=== PATIENT | female | born 1950 | race Caucasian/White ===

== ENCOUNTER → 2018-08-03 | Day surgery (SDC) | payer OTHER ==
[~2018-08-03] MED LIST: BALANCED SALT IRRIG PLAIN 500 ML BTL IRR ONE; BUPIVACAINE 0.25% PF 10 ML VIAL ONE; CYCLOPENTOLATE 1% OPTH 2 ML ONE; CYCLOPENTOLATE 1% OPTH 2 ML OPTH ONE; DUOVISC 1 KIT OPTH ONE; EPINEPHRINE/PF 1 MG/ML AMP ONE; FENTANYL CITR 100 MCG/2 ML ONE; LIDOCAINE 1% MPF 2 ML AMPULE ONE; LIDOCAINE 2% MPF 5 ML VIAL ONE; LIDOCAINE HCL/PF 3.5% OPTH GEL ONE; MIDAZOLAM HCL 2 MG/2 ML INJ ONE; MOXIFLOXACIN HCL 10 DROPS/ML **OR USE OPTH ONE; NA CHLORIDE 0.9% 500 ML ONE; NS 0.9% VIAL 10 ML ONE; PHENYLEPHRINE 10% OPTH 5ML ONE; PHENYLEPHRINE 10% OPTH 5ML OPTH ONE; TETRACAINE HCL 0.5% 2ML OPTH ONE
--- OUTSIDE RECORDS SUMMARY | 2018-08-03 07:26 | XMS REPORT | Clinical Summary ---
:1950 Author Organization [facility] Address [address] [place] [address] Care Team Providers Name Role Phone Asked, No Pcp Primary Care Provider Unavailable Allergies Active Allergy Reactions Severity Noted Date Comments Cephalexin 04/02/2016 Current Medications Prescription Sig. Disp. Refills Start Date End Date Status fluticasone-salmete Inhale 1 puff 2 Active rol (ADVAIR) 250-50 (two) times a mcg/dose DISKUS day. montelukast Take 10 mg by Active (SINGULAIR) 10 mg mouth nightly. tablet tiotropium Place 1 capsule Active (SPIRIVA) 18 mcg into inhaler and per inhalation inhale once capsule daily. ipratropium-albuter Inhale 2 puffs Active ol (COMBIVENT) every 6 (six) 18-103 hours as needed mcg/actuation for wheezing. inhaler PARoxetine (PAXIL) Take 20 mg by Active 20 MG tablet mouth every morning. albuterol Take 2.5 mg by Active (PROVENTIL) 2.5 mg nebulization /3 mL (0.083 %) every 6 (six) nebulizer solution hours as needed for wheezing. amitriptyline Take 150 mg by Active (ELAVIL) 150 MG mouth nightly. tablet levocetirizine TAKE ONE TABLET 30 tablet 3 03/30/2018 Active (XYZAL) 5 MG tablet BY MOUTH IN THE EVENING FOR 30 DAYS famotidine (PEPCID) TAKE ONE TABLET 90 tablet 4 01/13/2017 02/07/20 Discontinued 40 MG tablet BY MOUTH ONCE 18 DAILY pantoprazole TAKE ONE TABLET 90 tablet 3 02/17/2017 12/23/19 Discontinued (PROTONIX) 40 MG EC BY MOUTH ONCE 18 tablet DAILY levoFLOXacin Take 1 tablet 7 tablet 0 07/31/2017 08/07/20 (LEVAQUIN) 500 MG (500 mg total) by 17 tablet mouth daily for 7 days. famotidine (PEPCID) Take 40 mg by 04/29/20 Discontinued 40 MG tablet mouth daily. 18 levocetirizine Take 5 mg by 10/29/19 Discontinued (XYZAL) 5 MG tablet mouth every 18 evening. levocetirizine Take 1 tablet (5 30 tablet 3 10/29/2017 03/30/20 Discontinued (XYZAL) 5 MG tablet mg total) by 18 mouth every evening for 30 days. levoFLOXacin Take 1 tablet 7 tablet 0 10/29/2017 11/05/19 (LEVAQUIN) 500 MG (500 mg total) by 18 tablet mouth daily for 7 days. predniSONE 4 tabs daily X 3 32 tablet 0 10/29/2017 11/13/19 (DELTASONE) 10 mg days, 3 tabs 18 tablet daily X 3 days, 2 tabs daily X 3 days, 1 tab daily X 3 days, then 1/2 tab daily X 3 days. pantoprazole TAKE ONE TABLET 90 tablet 3 12/22/2017 01/22/20 (PROTONIX) 40 MG EC BY MOUTH ONCE 18 tablet DAILY predniSONE 4 tabs daily X 3 32 tablet 0 01/27/2018 02/12/20 (DELTASONE) 10 mg days, 3 tabs 18 tablet daily X 3 days, 2 tabs daily X 3 days, 1 tab daily X 3 days, then 1/2 tab daily X 3 days. famotidine (PEPCID) TAKE ONE TABLET 90 tablet 4 02/06/2018 03/08/20 40 MG tablet BY MOUTH ONCE 18 DAILY famotidine (PEPCID) Take 1 tablet (40 30 tablet 2 04/29/2018 05/29/20 40 MG tablet mg total) by 18 mouth daily for 30 days. Active Problems Problem Noted Date Allergic sinusitis 10/29/2017 COPD, severe- stable 07/31/2017 COPD with exacerbation (HCC) 02/26/2017 Confusion 02/26/2017 Pneumonia due to infectious organism 11/15/2016 Gastroesophageal reflux disease without esophagitis- stable 09/18/2016 Anxiety 09/18/2016 Chronic obstructive pulmonary disease (HCC) 05/30/2016 COPD (chronic obstructive pulmonary disease) (HCC) Lung nodule Encounters Date Type Specialty Care Team Description 05/05/2018 Orders Only Pulmonology Margarita Yao MA Chronic obstructive pulmonary disease, unspecified COPD type 04/29/2018 Clinical Support Pulmonology Kj Vergara, Chronic obstructive MD pulmonary disease, Vamsi Oleary unspecified COPD type 04/29/2018 Office Visit Pulmonology Kj Vergara, Chronic obstructive pulmonary disease, unspecified COPD type (Primary Dx); Allergic sinusitis; Gastroesophageal reflux disease without esophagitis 03/30/2018 Refill Pulmonology Kj Vergara, 02/06/2018 Refill Pulmonology Kj Vergara, 01/27/2018 Office Visit Pulmonology Kj Veragra, COPD, severe- stable (Primary Dx); Gastroesophageal reflux disease without esophagitis- stable; Allergic sinusitis 12/22/2017 Refill Pulmonology Kj Vergara, 10/29/2017 Office Visit Pulmonology Kj Vergara, COPD, severe- stable (Primary Dx); Allergic sinusitis after 08/02/2017 Immunizations Name Dates Previously Given Next Due FLUZONE HIGH-DOSE PF 07/31/2017, 05/30/2016 Influenza Trivalent 07/05/2015 Pneumococcal Conjugate 13-Valent 11/14/2015 Pneumococcal Polysaccharide 04/28/2013 Social History Tobacco Use Types Packs/Day Years Used Date Former Smoker Quit: 2006 Smokeless Tobacco: Former User Comments: 2008 stopped smoking Alcohol Use Drinks/Week oz/Week Comments No Sex Assigned at Date Recorded Not on file Last Filed Vital Signs Vital Sign Reading Time Taken Blood Pressure 122/70 04/29/2018 12:31 PM CDT Pulse 102 04/29/2018 12:31 PM CDT Temperature 36.6 C (97.8 F) 04/29/2018 12:31 PM CDT Respiratory Rate 14 04/29/2018 12:31 PM CDT Oxygen Saturation 90% 04/29/2018 12:31 PM CDT Inhaled Oxygen Concentration - - Weight 73.6 kg (162 lb 3.2 oz) 04/29/2018 12:31 PM CDT Height 167.6 cm (5' 6") 04/29/2018 12:31 PM CDT Body Mass Index 26.18 04/29/2018 12:31 PM CDT Plan of Treatment Date Type Specialty Care Team Description 08/10/2018 Office Visit Pulmonology Kj Vergara MD [address] [facility] [place] [address] Health Maintenance Due Date Last Done Comments BREAST CANCER SCREENING 1998 COLON CANCER SCREENING 1998 SHINGRIX VACCINE (#1) 1998 ZOSTER VACCINE 2008 INFLUENZA VACCINE 05/06/2018 07/31/2017, 05/30/2016, 07/05/2015 PNEUMOCOCCAL POLYSACCHARIDE VACCINE Completed 04/28/2013 AGE 65 AND OVER PNEUMOCOCCAL-13 Completed 11/14/2015 Results Not on fileafter 08/02/2017 Insurance Payer Benefit Plan / Group Subscriber ID Type Phone Address HUMANA MEDICARE HUMANA MEDICARE PPO/PFFS/ERS [facility] xxxxxxxxx PPO [phone] [place], [place] [id number]
--- NOTE | 2018-08-03 09:58 | P.BOP ---
Preoperative diagnosis: Nuclear sclerotic cataract OD Postoperative diagnosis: Same Primary procedure: Phacoemulsification with IOL OD Estimated blood loss: None Anesthesia: Local (Topical with anesthesia for cataract surgery) Complications: None Implants: [id number] +21.5 Transferred to: Other (Day surgery) Condition: Good
[2018-08-03 10:04] VITALS: BP 123/60; TEMP 97.3; O2SAT 93
--- NOTE | 2018-08-03 20:43 | OP ---
Date of Procedure: 08/03/2018 Surgeon: Dawn Kwan MD Anesthesiologist: Garrick León CRNA and Raz Boland M.D. Preoperative Diagnosis: Nuclear sclerotic cataract, right eye. Operation Performed: Phacoemulsification with intraocular lens implant, right eye. Anesthesia: Per cataract surgery. Complications: None. Description Of Procedure: In the operating room the patient was prepped and draped in the usual sterile fashion for ophthalmic surgery. A lid speculum was placed in the right eye. Two paracentesis sites were made superiorly and inferiorly in the limbal cornea. Viscoat was placed in the anterior chamber and a crescent blade was used to make a corneal groove and tunnel, and a keratome was used to enter the anterior chamber. Provisc was placed in the anterior chamber and a 360 degree capsulotomy was performed with a cystitome. The lens was hydrodissected with BSS and rotated freely. The lens was removed with a stop and chop technique. A 7.27 phaco CDE was used to remove the lens. Residual cortex was removed with the irrigation and aspiration. Provisc was placed in the capsular bag. A ZCB00 +21.5 lens was placed in the capsular bag without complications. Irrigation and aspiration was used to remove residual viscoelastic. The paracentesis sites were hydrated with BSS. The wound and paracentesis sites were inspected and found to be watertight. Vigamox 0.07 cc was placed intracamerally at the end of the procedure. The eye was irrigated with balanced salt solution. The eye was patched with a soft cotton patch and Tyler metal shield. The patient was returned to day surgery in good condition. Comments: Akten was placed in the eye in Day Surgery and irrigated out of the eye with BSS in the OR. Preservative-free 1% lidocaine was placed in the anterior chamber prior to Viscoat. During I and A, the pupil became floppy and 1:5000 epinephrine was placed in the anterior chamber. Discharge Instructions: Ms. Waldrop was discharged to home in good condition and is to follow up with Dr. Kwan in the morning. DAQUAN/BRIAN Voice ID: [id number] Report ID: [id number] [facility] CENTERMargot
== END | disposition home or self-care (01) ==
LOC: OR 07:24
PROVIDERS: ATTEND Ophthalmology Retina Specialist
PROC: 08RJ3JZ Replacement of Right Lens with Synthetic Substitute, Percutaneous Approach (ICD-10-PCS; principal; 2018-08-03 09:00)
DX: H25.11 Age-related nuclear cataract, right eye (principal); H04.123 Dry eye syndrome of bilateral lacrimal glands; H35.3130 Nonexudative age-related macular degeneration, bilateral, stage unspecified; J44.9 Chronic obstructive pulmonary disease, unspecified; K21.9 Gastro-esophageal reflux disease without esophagitis; Z87.891 Personal history of nicotine dependence; Z88.1 Allergy status to other antibiotic agents; Z88.6 Allergy status to analgesic agent
CPT/HCPCS: 66984; J0171 ×2; J2001; J2250; J3010

== ENCOUNTER 2018-08-10 08:09 | Observation (INO) | payer OTHER ==
--- OUTSIDE RECORDS SUMMARY | 2018-08-10 08:11 | XMS REPORT | Clinical Summary ---
:1950 Author Organization [facility] Address [address] [place] [address] Care Team Providers Name Role Phone Asked, [...] EC BY MOUTH ONCE 18 tablet DAILY famotidine (PEPCID) Take 40 mg by 04/29/20 [...] Kj Vergara, 01/27/2018 Office Visit Pulmonology Kj Vergara, COPD, severe- stable (Primary Dx); Gastroesophageal reflux disease without esophagitis- stable; Allergic sinusitis 12/22/2017 Refill Pulmonology Kj Vergara, 10/29/2017 Office Visit Pulmonology Kj Vergara, COPD, severe- stable (Primary Dx); Allergic sinusitis after 08/09/2017 Immunizations Name Dates Previously Given Next Due [...] Team Description 08/10/2018 Office Visit Pulmonology Kj Vergara, [address] [address] [phone] Health Maintenance Due Date Last Done Comments BREAST CANCER SCREENING 1998 COLON CANCER SCREENING 1998 SHINGRIX VACCINE (#1) 1998 ZOSTER VACCINE 2008 INFLUENZA VACCINE 05/06/2018 07/31/2017, 05/30/2016, 07/05/2015 PNEUMOCOCCAL POLYSACCHARIDE VACCINE Completed 04/28/2013 AGE 65 AND OVER PNEUMOCOCCAL-13 Completed 11/14/2015 Results Not on fileafter 08/09/2017 Insurance Payer Benefit Plan / Group Subscriber ID Type Phone Address HUMANA MEDICARE HUMANA MEDICARE PPO/PFFS/ERS [facility] xxxxxxxxx PPO Home: [id number] [phone] [place] [phone]
[2018-08-10] MEDS ORDERED: NA CHLORIDE 0.9% 500 ML ONE (08:37)
[2018-08-10] MEDS ORDERED: MECLIZINE HCL 12.5 MG TAB ONE (08:37)
--- NOTE | 2018-08-10 08:49 | RAD REPORT ---
EXAM DESCRIPTION: CT - Ct Stroke Brain Wo Cont - 08/10/2018 8:40 am CLINICAL HISTORY: Dizziness COMPARISON: None. TECHNIQUE: Computed axial tomography of the head was obtained. IV contrast was not requested. All CT scans are performed using dose optimization technique as appropriate and may include automated exposure control or mA/KV adjustment according to patient size. FINDINGS: An intracranial bleed is not seen . The ventricles are normal in caliber. No extra-axial fluid collection is noted. Chronic opacification of the left maxillary sinus is seen. IMPRESSION: No acute intracranial abnormality is seen. If patient's symptoms persist MRI of the bra in would be recommended. Exam discussed with Dr. Hernandez Emergency Room 8:43 a.m. August 10, 2018
[2018-08-10 09:01] LABS: Absolute Lymphocytes (CBC) 1.3 K/uL (0.7-4.9); Absolute Monocytes 0.6 K/uL (0.1-1.3); Absolute Neutrophil 4.7 K/uL (1.8-8.0); Basophils % 0.4 % (0-1.3); Eosinophils % 3.7 % (0-4.4); Hematocrit 40.2 % (36.0-45.0); Lymphocytes % 19.1 % (15.3-44.8); MCH 31.7 pg (27.0-35.0); MCV 95.2 fL (80-100); MPV 7.8 fL (7.6-11.3); Monocytes % 9.1 % (3.3-12.3); RBC Red Blood Cell Count 4.22 M/uL (3.86-4.86)
[2018-08-10 09:06] LABS: Protime INR 0.93
[2018-08-10 09:22] LABS: Potassium 3.9 mmol/L (3.5-5.1)
--- NOTE | 2018-08-10 09:52 | RAD REPORT ---
EXAM DESCRIPTION: - STROKE CXR 1 VIEW - 08/10/2018 9:15 am CLINICAL HISTORY: Weakness/dizziness/numbness/code stroke COMPARISON: November 2016 FINDINGS: The lungs are hyperaerated. Lungs appear clear of acute infiltrate. Heart is normal size
--- NOTE | 2018-08-10 11:19 | EDPHYS ---
Physician Documentation [facility] Name: Yany Waldrop Age: 68 yrs Sex: Female : 1950 Arrival Date: 08/10/2018 Time: 08:11 Bed 5 Private MD: ED Physician Marcelo Hernandez HPI: 08/10 08:47 This 68 yrs old Female presents to ER via Wheelchair with complaints of rn Dizziness. 08:47 The patient presents with feeling off balance, sense of spinning. Onset: The rn symptoms/episode began/occurred 2 week(s) ago. Modifying factors: The symptoms are alleviated by nothing, the symptoms are aggravated by movement of head, standing up, changing position. Severity of symptoms: At their worst the symptoms were moderate in the emergency department the symptoms have improved. The patient has experienced similar episodes in the past. Woke up today and fell to ground because feeling lightheaded and dizzy, report dizzy episodes, intermittent, happening for last 2 weeks, noticed right arm weakness over last 2 days, and when woke up today noticed right leg weakness. . Historical: - Allergies: 08:18 Keflex; iw - Immunization history:: Adult Immunizations up to date. - Ebola Screening: : Patient negative for fever greater than or equal to 101.5 degrees Fahrenheit, and additional compatible Ebola Virus Disease symptoms Patient denies exposure to infectious person Patient denies travel to an Ebola-affected area in the 21 days before illness onset No symptoms or risks identified at this time. - Social history:: Smoking status: Patient/guardian denies using tobacco, Patient/guardian denies using alcohol. - Family history:: not pertinent. - Hospitalizations: : No recent hospitalization is reported. ROS: 08:47 Constitutional: Negative for fever, chills, and weight loss, Eyes: Negative for injury, rn pain, redness, and discharge, Neck: Negative for injury, pain, and swelling, Cardiovascular: Negative for chest pain, palpitations, and edema, Respiratory: Negative for pleuritic chest pain Abdomen/GI: Negative for abdominal pain, nausea, vomiting, diarrhea, and constipation, MS/Extremity: Negative for injury and deformity, Skin: Negative for injury, rash, and discoloration, Neuro: Negative for headache, numbness, tingling, and seizure. Exam: 08:47 Constitutional: This is a well developed, well nourished patient who is awake, alert, rn and in no acute distress. Head/Face: Normocephalic, atraumatic. Eyes: Pupils equal round and reactive to light, extra-ocular motions intact. Lids and lashes normal. Conjunctiva and sclera are non-icteric and not injected. Cornea within normal limits. Periorbital areas with no swelling, redness, or edema. Neck: Trachea midline, no thyromegaly or masses palpated, and no cervical lymphadenopathy. Supple, full range of motion without nuchal rigidity, or vertebral point tenderness. No Meningismus. Cardiovascular: Regular rate and rhythm with a normal S1 and S2. No gallops, murmurs, or rubs. Normal PMI, no JVD. No pulse deficits. Respiratory: faint exp wheezing bilaterally, speaking full sentences Abdomen/GI: soft, non-tender MS/ Extremity: Pulses equal, no cyanosis. Neurovascular intact. Full, normal range of motion. Equal circumference. Neuro: Awake and alert, GCS 15, oriented to person, place, time, and situation. Cranial nerves II-XII grossly intact. Motor strength 5/5 in all extremities. Sensory grossly intact. NOrmal finger to nose. Vital Signs: 08:12 BP 157 / 89; Pulse 100; Resp 18; Temp 98.6(TE); Pulse Ox 94% on R/A; Weight 70.76 kg; hj Height 5 ft. 4 in. (162.56 cm); Pain 0/10; 09:08 BP 131 / 72; Pulse 90; Resp 18; Pulse Ox 96% on R/A; hj 09:43 BP 137 / 78; Pulse 89; Resp 18; Pulse Ox 94% on R/A; hj 10:11 BP 113 / 79; Pulse 88; Resp 18; Pulse Ox 95% on R/A; hj 10:53 BP 139 / 80; Pulse 87; Resp 18; Pulse Ox 96% on R/A; hj 11:37 BP 146 / 86; Pulse 88; Resp 18; Pulse Ox 95% on 2 lpm NC; hj 12:23 BP 139 / 78; Pulse 96; Resp 18; Pulse Ox 99% on 2 lpm NC; hj 08:12 Body Mass Index 26.78 (70.76 kg, 162.56 cm) NIH Stroke Scale Scores: 08:50 NIHSS Score: 0 hj MDM: 08:23 Patient medically screened. rn 08:40 ED course: NIH 0. Has subjective weakness RUE/RLE but no drift and elevates for 10s rn (arm), 5s (leg). 08:45 ED course: Pt with symptoms more consistent with vertigo syndrome, reports dizziness rn and unsteady, worse over last 2 weeks and when gets out of bed. No TPA indicated as NIH 0 and woke up with symptoms. Explained importance of timing/onset to patient and in terms of TPA/ no TPA, and after long discussion, patient states weakness present upon awakening., which puts last known normal last night and outside of TPA window.. 09:01 ED course: CT head no acute findings per Lopez Higginbotham.. rn 11:14 Differential diagnosis: cardiac arrhythmia, CVA, generalized weakness, hypovolemia, rn idiopathic dizziness, near-syncope, TIA, vertigo. Data reviewed: vital signs, nurses notes, lab test result(s), EKG, radiologic studies, CT scan, plain films, and as a result, I will admit patient. Counseling: I had a detailed discussion with the patient and/or guardian regarding: the historical points, exam findings, and any diagnostic results supporting the discharge/admit diagnosis, lab results, radiology results, the need for further work-up and treatment in the hospital. Response to treatment: the patient's symptoms have mildly improved after treatment. Admission orders: after a detailed discussion of the patient's condition and case, the admit orders are written by me. ED course: Will admit to Dr. Finney for MRI and further eval given vertigo like symptoms but has additional right sided weakness. . 08/10 08:23 Order name: Troponin (emerg Dept Use Only) rn 08/10 08:23 Order name: Basic Metabolic Panel rn 08/10 08:23 Order name: CBC with Diff rn 08/10 08:23 Order name: Protime (+inr) rn 08/10 08:23 Order name: Ptt, Activated rn 08/10 10:37 Order name: Troponin (Emerg Dept Use Only); Complete Time: 11:18 EDMS 08/10 08:23 Order name: CT Stroke Brain w/o Contrast rn 08/10 08:23 Order name: Stroke CXR 1 View rn 08/10 10:37 Order name: Protime (+INR); Complete Time: 11:18 EDMS 08/10 10:37 Order name: CBC with Automated Diff; Complete Time: 11:18 EDMS 08/10 10:37 Order name: PTT, Activated Partial Thromb; Complete Time: 11:18 EDMS 08/10 10:37 Order name: Basic Metabolic Panel; Complete Time: 11:18 EDMS 08/10 10:37 Order name: Glucose, Ancillary Testing; Complete Time: 11:18 EDMS 08/10 11:31 Order name: Urine Dipstick--Ancillary (enter results) bd 08/10 08:23 Order name: EKG; Complete Time: 10:35 rn 08/10 08:23 Order name: Accucheck; Complete Time: 08:57 rn 08/10 08:23 Order name: Cardiac monitoring; Complete Time: 08:25 rn 08/10 08:23 Order name: EKG - Nurse/Tech; Complete Time: 09:34 rn 08/10 08:23 Order name: IV Saline Lock; Complete Time: 08:57 rn 08/10 08:23 Order name: Labs collected and sent; Complete Time: 08:57 rn 08/10 08:23 Order name: NPO; Complete Time: 08:25 rn 08/10 08:23 Order name: O2 Per Protocol; Complete Time: 08:25 rn 08/10 08:23 Order name: O2 Sat Monitoring; Complete Time: 08:25 rn 08/10 08:23 Order name: Stroke Swallow Screen; Complete Time: 08:57 rn 08/10 10:46 Order name: CT; Complete Time: 11:18 EDMS 08/10 10:46 Order name: RAD; Complete Time: 11:18 EDMS Administered Medications: 08:50 Drug: Meclizine 50 mg Route: PO; hj 09:11 Follow up: Response: No adverse reaction hj 08:50 Drug: NS 0.9% 500 ml Route: IV; Rate: bolus; Site: left antecubital; hj 10:00 Follow up: IV Status: Completed infusion Point of Care Testing: Blood Glucose: 08:50 Blood Glucose: 91 mg/dL; Ranges: Critical Glucose Levels:Adult <50 mg/dl or >400 mg/dl <40 mg/dl or >180 mg/dl Disposition: 08/10/18 11:18 Hospitalization ordered by Finney, Poyani for Observation. Preliminary diagnosis are Dizziness and giddiness, Weakness. - Bed requested for Telemetry/MedSurg (observation). - Status is Observation. hj - Condition is Stable. - Problem is an ongoing problem. - Symptoms have improved. UTI on Admission? No NIH Stroke Scale - NIH Stroke Score Date: 08/10/2018 Time: 08:50 Total Score = 0 1a. Level of Consciousness (LOC) - 0(Alert) 1b. Level of Consciousness (LOC) (Year \T\ Age) - 0(Both) 1c. LOC Commands (Open \T\ Closes Eyes/Women'S Garment Fitter) - 0(Both) 2. Best Gaze (Lateral Gaze Paresis) - 0(Normal) 3. Visual Field Loss - 0(No visual loss) 4. Facial Palsy - 0(Normal) 5a. Left Arm: Motor (10-second hold) - 0(No drift) 5b. Right Arm: Motor (10-second hold) - 0(No drift) 6a. Left Leg: Motor (5-second hold - always test supine) - 0(No drift) 6b. Right Leg: Motor (5-second hold - always test supine) - 0(No drift) 7. Limb Ataxia (finger/nose \T\ heel/dunlap - test with eyes open) - 0(Absent) 8. Sensory Loss (pinprick arms/legs/face) - 0(Normal) 9. Best Language: Aphasia (description/naming/reading) - 0(No aphasia) 10. Dysarthria (speech clarity - read or repeat words) - 0(Normal) 11. Extinction and Inattention (visual/tactile/auditory/spatial/personal) - 0(No abnormality) Initials: Signatures: Dispatcher [employer] EDMS Linnette Grier Irene, RN RN iw Nieto, Roman, MD MD rn Joaquin, Henry, RN RN hj Corrections: (The following items were deleted from the chart) 08:46 08:45 ED course: Pt with symptoms more consistent with vertigo syndrome, rn reports dizziness and unsteady, worse over last 2 weeks and when gets out of bed. No TPA indicated as NIH 0 and woke up with symptoms. Explained importance of timing/onset to patient and in terms of TPA/ no TPA, and after long discussion, patient states weakness present upon awakening. . rn 12:48 11:18 Hospitalization Ordered by Katie Finney MD for Observation. Preliminary bd diagnosis is Dizziness and giddiness; Weakness. Bed requested for Telemetry/MedSurg (observation). Status is Observation. Condition is Stable. Problem is an ongoing problem. Symptoms have improved. UTI on Admission? No. rn 13:13 12:48 08/10/2018 11:18 Hospitalization Ordered by Katie Finney MD for hj Observation. Preliminary diagnosis is Dizziness and giddiness; Weakness. Bed requested for Telemetry/MedSurg (observation). Status is Observation. Condition is Stable. Problem is an ongoing problem. Symptoms have improved. UTI on Admission? No. bd
--- NOTE | 2018-08-10 11:19 | ER ---
Nurse's Notes [facility] Name: Yany Waldrop Age: 68 yrs Sex: Female : 1950 Arrival Date: 08/10/2018 Time: 08:11 Bed 5 Private MD: Diagnosis: Dizziness and giddiness;Weakness Presentation: 08/10 08:13 Presenting complaint: Patient states: c/o intermittent dizziness, light headedness for iw past week, this morning felt like right leg and right arm was feeling weak, this morning she fell to ground when she got out of bed. Transition of care: patient was not received from another setting of care. Risk Assessment: Do you want to hurt yourself or someone else? Patient reports no desire to harm self or others. Initial Sepsis Screen: Does the patient meet any 2 criteria? No. Patient's initial sepsis screen is negative. Does the patient have a suspected source of infection? No. Patient's initial sepsis screen is negative. Care prior to arrival: None. 08:13 Method Of Arrival: Wheelchair iw 08:13 Acuity: ALFONSO 2 iw 08:13 Onset of symptoms was August 10, 2018. hj 08:50 No acute neurological deficit is noted. The patients blood glucose was checked before hj arriving to the hospital and was found to be normal. Triage Assessment: 08:39 General: Appears in no apparent distress. uncomfortable, Behavior is calm, cooperative, hj appropriate for age. Pain: Denies pain. 08:50 The onset of the patients symptoms was August 10, 2018 at 07:30. hj Stroke Activation: Symptom onset > 6 hours Physician: Stroke Attending; Name: ; Notified At: ; Arrived At: Physician: Chief Stroke Resident; Name: ; Notified At: ; Arrived At: Physician: Stroke Resident; Name: ; Notified At: ; Arrived At: Physician: ED Attending; Name: ; Notified At: ; Arrived At: Physician: ED Resident; Name: ; Notified At: ; Arrived At: Historical: - Allergies: 08:18 Keflex; iw - Immunization history:: Adult Immunizations up to date. - Ebola Screening: : Patient negative for fever greater than or equal to 101.5 degrees Fahrenheit, and additional compatible Ebola Virus Disease symptoms Patient denies exposure to infectious person Patient denies travel to an Ebola-affected area in the 21 days before illness onset No symptoms or risks identified at this time. - Social history:: Smoking status: Patient/guardian denies using tobacco, Patient/guardian denies using alcohol. - Family history:: not pertinent. - Hospitalizations: : No recent hospitalization is reported. Screenin:13 Abuse screen: Denies threats or abuse. Denies injuries from another. Nutritional hj screening: No deficits noted. Tuberculosis screening: No symptoms or risk factors identified. Fall Risk None identified. Assessment: 08:13 Reassessment: pt was sent to CT immediately;. hj 08:35 T-PA (Activase) Screening: Contraindications: Patient reports onset of signs and iw symptoms of stroke greater than 6 hours ago: Yes. 08:44 Reassessment: Dr. Higginbotham reports Ct was negative. iw 08:50 The patient has not been NPO before screening. The patient is alert, and able to follow hj commands. The patient does not exhibit slurred or garbled speech. The patient is not exhibiting difficulty speaking. The patient does not exhibit difficulty understanding words. The patient is able to swallow own secretions with no drooling or need for suction. Patient tolerated one teaspoon of water. No drooling, immediate coughing, gurgling, or clearing of the throat was noted. The patient passed the bedside swallow screening. Oral medications may be given as ordered. Contact Physician for further diet orders. Provider notified of bedside swallow screening results: Chago Flores RN. Neuro: Level of Consciousness is awake, alert, obeys commands, Oriented to person, place, time, situation, Appropriate for age Fire Control Officer are Weakness in right arm(s) leg(s) Gait is steady, Speech is normal, Facial symmetry appears normal, Pupils are PERRLA, Intact Reports dizziness, weakness in right arm and right leg that started this AM;. 08:50 The patient tolerated 90mL of water. No drooling, immediate coughing, gurgling, or hj clearing of the throat was noted. 10:11 Reassessment: Patient and/or family updated on plan of care and expected duration. Pain hj level reassessed. Patient is alert, oriented x 3, equal unlabored respirations, skin warm/dry/pink. awaiting results and POC;. 11:36 Reassessment: assisted pt to bathroom; pt complained of SOB; states: "i used O2 at home hj at night time"; pt assisted back to room via wheelchair, hooked to O2 at 2L; O2 sat- 95%;. Vital Signs: 08:12 BP 157 / 89; Pulse 100; Resp 18; Temp 98.6(TE); Pulse Ox 94% on R/A; Weight 70.76 kg; hj Height 5 ft. 4 in. (162.56 cm); Pain 0/10; 09:08 BP 131 / 72; Pulse 90; Resp 18; Pulse Ox 96% on R/A; hj 09:43 BP 137 / 78; Pulse 89; Resp 18; Pulse Ox 94% on R/A; hj 10:11 BP 113 / 79; Pulse 88; Resp 18; Pulse Ox 95% on R/A; hj 10:53 BP 139 / 80; Pulse 87; Resp 18; Pulse Ox 96% on R/A; hj 11:37 BP 146 / 86; Pulse 88; Resp 18; Pulse Ox 95% on 2 lpm NC; hj 12:23 BP 139 / 78; Pulse 96; Resp 18; Pulse Ox 99% on 2 lpm NC; hj 08:12 Body Mass Index 26.78 (70.76 kg, 162.56 cm) hj NIH Stroke Scale Scores: 08:50 NIHSS Score: 0 hj ED Course: 08:11 Patient arrived in ED. hj 08:12 Chago Flores, RN is Primary Nurse. hj 08:13 Arm band placed on right wrist. hj 08:13 Patient has correct armband on for positive identification. Placed in gown. Bed in low hj position. Call light in reach. Side rails up X 1. Adult w/ patient. 08:14 Triage completed. iw 08:23 Marcelo Hernandez MD is Attending Physician. rn 08:[address] via stretcher. sj 08:34 CT completed. Patient tolerated procedure well. Patient moved back from CT. sj 08:50 Initial lab(s) drawn, by me, sent to lab. Inserted saline lock: 22 gauge in left hj antecubital area, using aseptic technique. Blood collected. 09:14 X-ray completed. Portable x-ray completed in exam room. Patient tolerated procedure ls3 well. 09:39 EKG done, by cert pharmacy tech. reviewed by Marcelo Hernandez MD. sm3 11:17 Katie Finney MD is Hospitalizing Provider. rn 11:25 Urine collected: clean catch specimen, clear. dh3 13:12 No provider procedures requiring assistance completed. Patient admitted, IV remains in hj place. intact. Administered Medications: 08:50 Drug: Meclizine 50 mg Route: PO; 09:11 Follow up: Response: No adverse reaction 08:50 Drug: NS 0.9% 500 ml Route: IV; Rate: bolus; Site: left antecubital; 10:00 Follow up: IV Status: Completed infusion Point of Care Testing: Blood Glucose: 08:50 Blood Glucose: 91 mg/dL; Ranges: Outcome: 11:18 Decision to Hospitalize by Provider. rn 13:12 Admitted to Med/surg accompanied by tech, family with patient, via wheelchair, room hj 232, with oxygen, with chart, Report called to LEIGHA Wilks 13:12 Condition: stable 13:12 Instructed on the need for admit, Demonstrated understanding of instructions. 13:13 Patient left the ED. NIH Stroke Scale - NIH Stroke Score Date: 08/10/2018 Time: 08:50 Total Score = 0 1a. Level of Consciousness (LOC) - 0(Alert) 1b. Level of Consciousness (LOC) (Year \\T\\ Age) - 0(Both) 1c. LOC Commands (Open \\T\\ Closes Eyes/Belt Knife Feeder) - 0(Both) 2. Best Gaze (Lateral Gaze Paresis) - 0(Normal) 3. Visual Field Loss - 0(No visual loss) 4. Facial Palsy - 0(Normal) 5a. Left Arm: Motor (10-second hold) - 0(No drift) 5b. Right Arm: Motor (10-second hold) - 0(No drift) 6a. Left Leg: Motor (5-second hold - always test supine) - 0(No drift) 6b. Right Leg: Motor (5-second hold - always test supine) - 0(No drift) 7. Limb Ataxia (finger/nose \\T\\ heel/dunlap - test with eyes open) - 0(Absent) 8. Sensory Loss (pinprick arms/legs/face) - 0(Normal) 9. Best Language: Aphasia (description/naming/reading) - 0(No aphasia) 10. Dysarthria (speech clarity - read or repeat words) - 0(Normal) 11. Extinction and Inattention (visual/tactile/auditory/spatial/personal) - 0(No abnormality) Initials: hj Signatures: Gisela Desai Irene, RN RN iw Marcelo Hernandez MD MD rn Joaquin, Henry, RN RN hj Herrera, Deanna 3 [place] 3 Levi Kearns ls3 Corrections: (The following items were deleted from the chart) 08:14 08:12 BP 157 / 89; Pulse 100bpm; Resp 18bpm; Pulse Ox 94% RA; 70.76 kg; Height hj 5 ft. 4 in.; BMI: 26.7; Pain 0/10; hj 09:06 08:50 Neuro: Level of Consciousness is awake, alert, obeys commands, Oriented hj to person, place, time, situation, Appropriate for age Fire Control Officer are Weakness in left in right arm(s) leg(s) Gait is steady, Speech is normal, Facial symmetry appears normal, Pupils are PERRLA, Intact Reports dizziness, weakness in left arm and right leg that started this AM;. 12:03 08:50 NIHSS Score: 2 [facility]
[2018-08-10 12:03] LABS: Urine Blood NEGATIVE (NEG); Urine Glucose NEGATIVE (NEG); Urine Protein NEGATIVE (NEG); Urine Specific Gravity 1.015 (1.005-1.030)
[2018-08-10] MEDS ORDERED: ACETAMINOPHEN 500 MG TAB PO PRN (13:27)
[2018-08-10] MEDS ORDERED: ONDANSETRON 4 MG/2 ML VIAL IV PRN (13:27)
[2018-08-10] MEDS ORDERED: ALBUTEROL 2.5 MG/3 ML NEB SOL NEB PRN (13:27)
[2018-08-10 13:35] VITALS: BMI 27.8
--- NOTE | 2018-08-10 15:20 | EKG ---
Test Date: 2018-08-10 Test Time: 10:27:17 Receiver Bulk System: OLIVIA MEASUREMENT RESULTS: Intervals: Rate: 87 TN: 186 QRSD: 80 QT: 354 QTc: 425 [place]: P: 91 TN: 186 QRS: 56 T: 56 INTERPRETIVE STATEMENTS: Normal sinus rhythm Normal ECG Compared to ECG 10/22/2016 20:44:44 Sinus tachycardia no longer present Atrial abnormality no longer present Electronically Signed On 08-10-18 15:19:28 BIOENGINEER by Mendez Dacosta
[2018-08-10 16:38] LABS: Urine Appearance CLEAR; Urine Bilirubin NEGATIVE (NEG); Urine Blood NEGATIVE (NEG); Urine Color YELLOW; Urine Glucose NEGATIVE (NEG); Urine Protein NEGATIVE (NEG); Urine Urobilinogen 0.2 mg/dL (0.2-1.0)
[2018-08-10 16:53] LABS: Urine Microscopic Reflex ORDER UMIC
[2018-08-10 16:56] LABS: Urine Bacteria <20 /HPF (<20); Urine RBC NONE SEEN /HPF (NONE SEEN)
[2018-08-10 16:57] LABS: Urine Culture Reflex Order REFLEXED
[2018-08-10] MEDS ORDERED: ENOXAPARIN 40 MG/0.4 ML SQ SCH (17:00)
[2018-08-10] MEDS ORDERED: MECLIZINE HCL 12.5 MG TAB PO PRN (17:26)
[2018-08-10 17:35] LABS: Magnesium 2.2 mg/dL (1.8-2.4); Phosphorus 3.5 mg/dL (2.5-4.9)
--- NOTE | 2018-08-10 17:48 | P.HP ---
Certification for Inpatient Patient admitted to: Observation With expected LOS: <2 Midnights Practitioner: I am a practitioner with admitting privileges, knowledge of patient current condition, hospital course, and medical plan of care. Services: Services provided to patient in accordance with Admission requirements found in Title 42 Section 412.3 of the Code of Federal Regulations Patient History Date of Service: 08/10/18 Reason for admission: Dizziness History of Present Illness: This is a 68-year-old female with history of COPD, home oxygen at night only and depression admitted for complaints of dizziness for the past few weeks. Per patient she has been feeling dizzy mostly when waking up in the morning for the past few weeks. She states that this morning the dizziness did not go away and had to hold on and she kind of went to the floor. She states she did not fall or hit her head or any part of her body. As she has been feeling off balance, states that she is spinning when she has these symptoms. She also states that this morning with these symptoms of dizziness, she also had right arm and right left weakness/chest with mild numbness and tingling. This has now resolved. Denies any headache, chest pain, shortness of breath, vision changes, speech changes. Of note, patient does have chronic sinusitis, some recent adenoid infection for which she has been on CiproFloxin 500 b.i.d. since 07/29/18. Allergies cephalexin monohydrate [From Keflex] Allergy (Intermediate, Verified 07/29/18 09 :34) hypotention hydrocodone [Hydrocodone] Adverse Reaction (Mild, Verified 04/30/12 12:32) insomnia, jittery Home Medications: Albuterol 1 puff IH PRN PRN 07/22/18 Fluticasone/Salmeterol [Advair 250-50 Diskus] 1 puff IH DAILY 07/22/18 Ipratropium/Albuterol Sulfate [Combivent Respimat 20-100 Mcg] 1 puff IH PRN PRN 07/22/18 Amitriptyline HCl 150 mg PO BEDTIME 08/10/18 Famotidine 40 mg PO BEDTIME 08/10/18 Levocetirizine Dihydrochloride [Xyzal] 5 mg PO DAILY 08/10/18 Montelukast [Singulair] 10 mg PO BEDTIME 08/10/18 PARoxetine HCl [Paxil] 20 mg PO DAILY 08/10/18 Tiotropium [Spiriva Handihaler] 18 mcg IH BEDTIME 08/10/18 - Past Medical/Surgical History Diabetic: No -: COPD -: Pneumonia 2015 -: Sinus Infection 2016 -: hysterectomy -: back surgery -: sinus surgery -: gallbladder surgery - Family History Mother -: Diabetes Father -: Lung disease - Social History Smoking Status: Former smoker Alcohol use: No CD- Drugs: No Caffeine use: No Place of Residence: Home Review of Systems As noted above Physical Examination - Vital Signs Temperature: 97.0 F Blood Pressure: 135/70 Pulse: 102 Respirations: 16 Pulse Ox (%): 94 - Physical Exam General: Alert, In no apparent distress, Oriented x3 HEENT: Atraumatic, PERRLA, Mucous membr. moist/pink, EOMI, Sclerae nonicteric Neck: Supple, 2+ carotid pulse no bruit, No LAD, Without JVD or thyroid abnormality Respiratory: Clear to auscultation bilaterally, Normal air movement Cardiovascular: Regular rate/rhythm, Normal S1 S2 Gastrointestinal: Normal bowel sounds, No tenderness Musculoskeletal: No tenderness Integumentary: No rashes Neurological: Normal gait, Normal speech, Normal strength at 5/5 x4 extr, Normal tone, Normal affect, Other (Nonfocal neurological exam) - Studies Laboratory Data (last 24 hrs) 08/10/18 08:50: Sodium 143, Potassium 3.9, BUN 17, Creatinine 1.00, Glucose 89 08/10/18 08:50: APTT 31.4 08/10/18 08:50: WBC 7.0, Hgb 13.4, Hct 40.2, Plt Count 241 08/10/18 08:50: PT 11.0, INR 0.93 08/10/18 08:23: PT Cancelled, INR Cancelled, APTT Cancelled 08/10/18 08:23: WBC Cancelled, Hgb Cancelled, Hct Cancelled, Plt Count Cancelled 08/10/18 08:23: Sodium Cancelled, Potassium Cancelled, BUN Cancelled, Creatinine Cancelled, Glucose Cancelled Assessment and Plan - Plan This is a 68-year-old female with: -Positional dizziness: This is likely secondary to BPPV. CT scan of the head negative in the ER. MRI ordered, pending. Meclizine as needed, as this is helping her symptoms. Continue to monitor with tele overnight -COPD: Stable at this point. Breathing treatments as needed. oxygen p.r.n. - Sinus infection: Patient is to complete a 14 day course of ciprofloxacin that she started on 07/29/2018. Will restart her ciprofloxacin 500 mg p.o. b.i.d. - UTI: Urine analysis with possible early urinary tract infection. Cultures pending. She is currently on oral ciprofloxacin, will continue. - Elevated blood pressure, without diagnosis of hypertension: Will continue to monitor, p.r.n. blood pressure medications. - History of depression: Stable. Restart home medications DVT prophylaxis: Lovenox GI prophylaxis: Home PPI Diet: Regular Disposition: Admit to acute, with telemetry. Monitor overnight, pending MRI. Likely discharge home in the morning. - Advance Directives Does patient have a Living Will: Yes Does patient have a Durable POA for Healthcare: Yes
[2018-08-10] MEDS ORDERED: ALBUTEROL SULFATE IH PRN (17:51)
[2018-08-10] MEDS ORDERED: IPRATROPIUM IH PRN (17:51)
[2018-08-10] MEDS ORDERED: LORazepam 2 MG/ML VIAL IV ONE (17:51)
[2018-08-10] MEDS ORDERED: POTASSIUM CL SA 10 MEQ TAB PO ONE (20:00)
--- NOTE | 2018-08-10 20:06 | RAD REPORT ---
EXAM DESCRIPTION: MRI - MRA Neck W/Wo Cont - 08/10/2018 7:39 pm CLINICAL HISTORY: Syncope, headache, weakness. COMPARISON: No comparisons FINDINGS: Contrast enhance 2D [id number] MR angiography of the neck vessels was performed. A left aortic arch is noted with normal great vessel configuration. Both common carotid artery and pablo th subclavian arteries have a normal size and appearance. Mild narrowing of the left carotid bulb is present. No significant right-sided carotid narrowing. Forward flow is seen in codominant vertebral a rteries. No significant carotid stenosis is seen. IMPRESSION: No significant carotid stenosis identified.
--- NOTE | 2018-08-10 20:06 | RAD REPORT ---
EXAM DESCRIPTION: MRI - MRA Head Wo Cont - 08/10/2018 7:39 pm CLINICAL HISTORY: Dizziness + right sided numbness/tingling/weakness CVA COMPARISON: Ct Stroke Brain Wo Cont dated 08/10/2018 FINDINGS: 3D noncontrast [id number] MR angiography of the [place] of [place] was performed. No aneurysm, flow-limiting stenosis or vascular malformation is seen. Forward flow seen in codominant vertebral arteries. origin of both posterior communicating artery is noted, normal variant. The visualized dural venous sinuses appear patent. IMPRESSION: No significant flow abnormality of the [place] of [place] is identified.
--- NOTE | 2018-08-10 20:06 | RAD REPORT ---
EXAM DESCRIPTION: MRI - Brain W/Wo Cont - 08/10/2018 7:39 pm CLINICAL HISTORY: . Syncope, headache COMPARISON: MRA Head Wo Cont dated 08/10/2018 TECHNIQUE: Multi-sequence, multiplanar MR imaging of the brain was performed with contrast. FINDINGS: No intracranial hemorrhage, hydrocephalus, extra-axial fluid collection or acute infarctio n.Small foci of T2/ FLAIR hyperintensity noted in the periventricular and deep white matter likely re lated to chronic microvascular ischemia. 9 mm rounded area of T2/FLAIR hyperintensity in the left pos terior frontal lobe is noted without correlate DWI abnormality. Subtle post-contrast enhancement is s een in this lesion. No edema or shift of midline structures. DWI is negative for acute CVA. The midline structures are normally formed. Mastoid air cells and paranasal sinuses are clear. IMPRESSION: Negative for acute CVA. 9 mm rounded nonspecific T2/FLAIR hyperintense lesion posterior left frontal lobe with subtle evidenc e of post-contrast enhancement.Differential considerations would include prior ischemic episode or de myelinating condition. Followup MR brain with contrast would be advised in 2-3 months for surveillanc e purposes.
[2018-08-10] MEDS: CIPROFLOXACIN HCL 500 MG TAB PO SCH (20:27)
[2018-08-10] MEDS ORDERED: FAMOTIDINE 20 MG TAB PO SCH (21:00)
[2018-08-10] MEDS ORDERED: AMITRIPTYLINE HCL 150 MG PO SCH (21:00)
[2018-08-10] MEDS ORDERED: TIOTROPIUM IH SCH (21:00)
[2018-08-10] MEDS ORDERED: MONTELUKAST 10 MG TAB PO SCH (21:00)
[2018-08-11 01:47] VITALS: O2SAT 97
[2018-08-11 04:37] VITALS: TEMP 97.9
[2018-08-11 05:44] LABS: Absolute Lymphocytes (CBC) 1.6 K/uL (0.7-4.9); Absolute Monocytes 0.6 K/uL (0.1-1.3); Absolute Neutrophil 3.1 K/uL (1.8-8.0); Basophils % 0.7 % (0-1.3); Eosinophils % 6.1 % (0-4.4); Hematocrit 37.2 % (36.0-45.0); Lymphocytes % 27.6 % (15.3-44.8); MCH 32.5 pg (27.0-35.0); MCV 94.6 fL (80-100); MPV 7.6 fL (7.6-11.3); Monocytes % 10.3 % (3.3-12.3); RBC Red Blood Cell Count 3.93 M/uL (3.86-4.86)
[2018-08-11 06:02] LABS: Albumin 2.9 g/dL (3.4-5.0); Bilirubin Total 0.3 mg/dL (0.2-1.0); Potassium 4.3 mmol/L (3.5-5.1); Protein, Total 6.5 g/dL (6.4-8.2)
[2018-08-11 08:46] VITALS: BP 122/80
[2018-08-11] MEDS ORDERED: CETIRIZINE HCL 5 MG TABLET PO SCH (09:00)
[2018-08-11] MEDS ORDERED: PARoxetine HCl 10 MG TAB PO SCH (09:00)
[2018-08-11] MEDS ORDERED: FLUTICASONE IH SCH (09:00)
[2018-08-11] MEDS ORDERED: CIPROFLOXACIN 500 MG TABLET PO SCH (09:00)
[2018-08-11] MEDS: CIPROFLOXACIN HCL 500 MG TAB PO SCH (09:00)
[2018-08-11] MEDS ORDERED: SALMETEROL IH SCH (09:00)
[2018-08-11] MEDS ORDERED: [UNRECOGNIZED DRUG - OTHER] IH SCH (09:00)
--- NOTE | 2018-08-11 12:36 | P.SSS ---
Patient History Date of Service: 08/11/18 Primary Care Provider: Dr. barrios Reason for admission: Dizziness History of Present Illness: This is a 68-year-old female with history of COPD, home oxygen at night only and depression admitted for complaints of dizziness for the past few weeks. Per patient she has been feeling dizzy mostly when waking up in the morning for the past few weeks. She states that this morning the dizziness did not go away and had to hold on and she kind of went to the floor. She states she did not fall or hit her head or any part of her body. As she has been feeling off balance, states that she is spinning when she has these symptoms. She also states that this morning with these symptoms of dizziness, she also had right arm and right left weakness/chest with mild numbness and tingling. This has now resolved. Denies any headache, chest pain, shortness of breath, vision changes, speech changes. Of note, patient does have chronic sinusitis, some recent adenoid infection for which she has been on CiproFloxin 500 b.i.d. since 07/29/18. Allergies cephalexin monohydrate [From Keflex] Allergy (Intermediate, Verified 07/29/18 09 :34) hypotention hydrocodone [Hydrocodone] Adverse Reaction (Mild, Verified 04/30/12 12:32) insomnia, jittery Home Medications: Albuterol 1 puff IH PRN PRN 07/22/18 Fluticasone/Salmeterol [Advair 250-50 Diskus] 1 puff IH DAILY 07/22/18 Ipratropium/Albuterol Sulfate [Combivent Respimat 20-100 Mcg] 1 puff IH PRN PRN 07/22/18 Amitriptyline HCl 150 mg PO BEDTIME 08/10/18 Ciprofloxacin HCl [Cipro 500 MG Tablet] 1 tab PO Q12H 08/10/18 Famotidine 40 mg PO BEDTIME 08/10/18 Levocetirizine Dihydrochloride [Xyzal] 5 mg PO DAILY 08/10/18 Montelukast [Singulair*] 10 mg PO BEDTIME 08/10/18 PARoxetine HCl [Paxil*] 20 mg PO DAILY 08/10/18 Tiotropium [Spiriva Handihaler*] 18 mcg IH BEDTIME 08/10/18 Meclizine HCl [Antivert*] 25 mg PO Q6H PRN #30 tab 08/11/18 Pantoprazole [Protonix Tab*] 40 mg PO DAILY 08/11/18 - Past Medical/Surgical History Diabetic: No -: COPD -: Pneumonia 2015 -: Sinus Infection 2016 -: hysterectomy -: back surgery -: sinus surgery -: gallbladder surgery - Family History Mother -: Diabetes Father -: Lung disease - Social History Smoking Status: Former smoker Alcohol use: No CD- Drugs: No Caffeine use: No Place of Residence: Home Review of Systems As noted above Physical Examination - Vital Signs Temperature: 97.9 F Blood Pressure: 122/80 Pulse: 104 Respirations: 16 Pulse Ox (%): 98 - Physical Exam General: Alert, In no apparent distress HEENT: Atraumatic, PERRLA, Mucous membr. moist/pink, EOMI, Sclerae nonicteric Neck: Supple, 2+ carotid pulse no bruit, No LAD, Without JVD or thyroid abnormality Respiratory: Clear to auscultation bilaterally, Normal air movement Cardiovascular: Regular rate/rhythm, Normal S1 S2 Gastrointestinal: Normal bowel sounds, No tenderness Musculoskeletal: No tenderness Integumentary: No rashes Neurological: Normal gait, Normal speech, Normal strength at 5/5 x4 extr, Normal tone, Normal affect Lymphatics: No axilla or inguinal lymphadenopathy Treatment Summary: Patient was admitted for observation for dizziness. Neurological workup for stroke including MRI/MRA of brain and neck were negative. The a 9 mm hyperdense region noted on MRI, seems stable. We recommended a 3-6 months followup for repeat MRI to note for any changes in the lesion. At the time of discharge, patient was asymptomatic. She stated that this morning when she woke up and got up, she did not experience any dizziness. She was discharged in stable condition. She was instructed to follow up with primary care physician and manager surgical. - Disposition Disposition: ROUTINE DISCHARGE Condition: GOOD Patient Discharge Instructions: Please follow up with the primary care physician in 1 week. Please follow up with Dr. horne in 1-2 weeks. Diet: Regular Activity: Driving precautions Time Spent Managing Pts Care (In Minutes): 35
[2018-08-11] MEDS ORDERED: LEVOCETIRIZINE 5 MG TABLET PO SCH (21:00)
[2018-08-11] MEDS ORDERED: AMITRIPTYLINE 50 MG TAB PO SCH (21:00)
[2018-08-11] MEDS ORDERED: TIOTROPIUM IH SCH (21:00)
[2018-08-12] MEDS ORDERED: PAROXETINE 20 MG TABLET PO SCH (09:00)
[2018-08-12] MEDS ORDERED: PANTOPRAZOLE 40MG TABLET PO SCH (10:32)
== END 2018-08-11 13:00 | disposition home or self-care (01) ==
LOC: ER 08:09 → ERHOLD 11:29 → 2ND 13:04
PROVIDERS: ADMIT Family Medicine; ATTEND Family Medicine
DX: R42 Dizziness and giddiness (principal); J32.9 Chronic sinusitis, unspecified; J44.9 Chronic obstructive pulmonary disease, unspecified; F32.9 Major depressive disorder, single episode, unspecified; Z87.891 Personal history of nicotine dependence
CPT/HCPCS: 36415; 70450; 70544; 70549; 70553; 71045; 80048; 80053; 81003; 81015; 82962; 83735; 84100; 84484; 85025; 85610; 85730; 87086; 87088; 93005; 94640; 94760; 96360; 99285; A9577; G0378; J1650

== ENCOUNTER 2018-09-05 10:39 | Observation (INO) | payer OTHER ==
--- OUTSIDE RECORDS SUMMARY | 2018-09-05 10:42 | XMS REPORT | Clinical Summary ---
:1950 Author Organization [facility] Address [address] [place] [address] Care Team Providers Name Role Phone Asked, No Pcp Primary Care Provider Unavailable Allergies Active Allergy Reactions Severity Noted Date Comments Cephalexin 04/02/2016 Medications Medication Sig Dispensed Refills Start End Date Status Date fluticasone-salmete Inhale 1 puff 2 0 Active rol (ADVAIR) 250-50 (two) times a mcg/dose DISKUS day. montelukast Take 10 mg by 0 Active (SINGULAIR) 10 mg mouth nightly. tablet tiotropium Place 1 capsule 0 Active (SPIRIVA) 18 mcg into inhaler and per inhalation inhale once capsule daily. ipratropium-albuter Inhale 2 puffs 0 Active ol (COMBIVENT) every 6 (six) 18-103 hours as needed mcg/actuation for wheezing. inhaler PARoxetine (PAXIL) Take 20 mg by 0 Active 20 MG tablet mouth every morning. albuterol Take 2.5 mg by 0 Active (PROVENTIL) 2.5 mg nebulization /3 mL (0.083 %) every 6 (six) nebulizer solution hours as needed for wheezing. amitriptyline Take 150 mg by 0 Active (ELAVIL) 150 MG mouth nightly. tablet levocetirizine TAKE 1 TABLET BY 30 tablet 3 Active (XYZAL) 5 MG tablet MOUTH IN THE 8 EVENING diazePAM (VALIUM) 2 Take 1 tablet (2 90 tablet 0 09/18/20 Active MG tablet mg total) by 8 18 mouth every 8 (eight) hours as needed for anxiety for up to 30 days. benzonatate Take 1 capsule 30 capsule 0 10/03/20 Active (TESSALON) 100 MG (100 mg total) by 8 18 capsule mouth 3 (three) times a day as needed for cough for up to 30 days. famotidine (PEPCID) TAKE ONE TABLET 90 tablet 4 02/07/20 Discontinued 40 MG tablet BY MOUTH ONCE 7 18 DAILY pantoprazole TAKE ONE TABLET 90 tablet 3 12/23/19 Discontinued (PROTONIX) 40 MG EC BY MOUTH ONCE 7 18 tablet DAILY famotidine (PEPCID) Take 40 mg by 0 04/29/20 Discontinued 40 MG tablet mouth daily. 18 levocetirizine Take 5 mg by 0 10/29/19 Discontinued (XYZAL) 5 MG tablet mouth every 18 evening. levocetirizine Take 1 tablet (5 30 tablet 3 03/30/20 Discontinued (XYZAL) 5 MG tablet mg total) by 8 18 mouth every evening for 30 days. levoFLOXacin Take 1 tablet 7 tablet 0 11/05/19 (LEVAQUIN) 500 MG (500 mg total) by 8 18 tablet mouth daily for 7 days. predniSONE 4 tabs daily X 3 32 tablet 0 11/13/19 (DELTASONE) 10 mg days, 3 tabs 8 18 tablet daily X 3 days, 2 tabs daily X 3 days, 1 tab daily X 3 days, then 1/2 tab daily X 3 days. pantoprazole TAKE ONE TABLET 90 tablet 3 01/22/20 (PROTONIX) 40 MG EC BY MOUTH ONCE 8 18 tablet DAILY predniSONE 4 tabs daily X 3 32 tablet 0 02/12/20 (DELTASONE) 10 mg days, 3 tabs 8 18 tablet daily X 3 days, 2 tabs daily X 3 days, 1 tab daily X 3 days, then 1/2 tab daily X 3 days. famotidine (PEPCID) TAKE ONE TABLET 90 tablet 4 03/08/20 40 MG tablet BY MOUTH ONCE 8 18 DAILY levocetirizine TAKE ONE TABLET 30 tablet 3 08/12/20 Discontinued (XYZAL) 5 MG tablet BY MOUTH IN THE 8 18 EVENING FOR 30 DAYS famotidine (PEPCID) Take 1 tablet (40 30 tablet 2 05/29/20 40 MG tablet mg total) by 8 18 mouth daily for 30 days. predniSONE 4 tabs daily X 3 32 tablet 0 09/03/20 (DELTASONE) 10 mg days, 3 tabs 8 18 tablet daily X 3 days, 2 tabs daily X 3 days, 1 tab daily X 3 days, then 1/2 tab daily X 3 days. Active Problems Problem Noted Date Allergic sinusitis 10/29/2017 COPD, severe- stable 07/31/2017 COPD with exacerbation 02/26/2017 Confusion 02/26/2017 Pneumonia due to infectious organism 11/15/2016 Gastroesophageal reflux disease without esophagitis- stable 09/18/2016 Anxiety 09/18/2016 Chronic obstructive pulmonary disease 05/30/2016 COPD (chronic obstructive pulmonary disease) Lung nodule Encounters Date Type Specialty Care Team Description 09/03/2018 Telephone Pulmonology Melva Bliss MA 08/19/2018 Office Visit Pulmonology Kj Vergara, COPD exacerbation ( HCC) (Primary Dx); Gastroesophageal reflux disease without esophagitis; Anxiety; Need for prophylactic vaccination and inoculation against cholera alone 08/19/2018 Orders Only Pulmonology ProviderChristelle MD 08/12/2018 Refill Pulmonology Kj Vergara MD 05/05/2018 Orders Only Pulmonology Margarita Yao MA Chronic obstructive pulmonary disease, unspecified COPD type 04/29/2018 Clinical Support Pulmonology Kj Vergara, Chronic obstructive MD pulmonary disease, Garciadeniz Vamsi unspecified COPD type 04/29/2018 Office Visit Pulmonology Kj Vergara, Chronic obstructive pulmonary disease, unspecified COPD type (Primary Dx); Allergic sinusitis; Gastroesophageal reflux disease without esophagitis 03/30/2018 Refill Pulmonology Kj Vergara MD 02/06/2018 Refill Pulmonology Kj Vergara MD 01/27/2018 Office Visit Pulmonology Kj Vergara, COPD, severe- stable (Primary Dx); Gastroesophageal reflux disease without esophagitis- stable; Allergic sinusitis 12/22/2017 Refill PulmonKj Huang MD 10/29/2017 Office Visit Pulmonology Kj Vergara, COPD, severe- stable (Primary Dx); Allergic sinusitis after 09/04/2017 Immunizations Name Dates Previously Given Next Due FLUZONE HIGH-DOSE PF 08/19/2018, 07/31/2017, 05/30/2016 08/19/2019 Influenza Trivalent 07/05/2015 Pneumococcal Conjugate 13-Valent 11/14/2015 Pneumococcal Polysaccharide 04/28/2013 Social History Tobacco Use Types Packs/Day Years Used Date Former Smoker Quit: 2006 Smokeless Tobacco: Former User Comments: 2008 stopped smoking Alcohol Use Drinks/Week oz/Week Comments No Sex Assigned at Date Recorded Not on file Job Start Date Occupation Industry Not on file Not on file Not on file Travel History Travel Start Travel End No recent travel history available. Last Filed Vital Signs Vital Sign Reading Time Taken Blood Pressure 152/91 08/19/2018 12:33 PM [employer] Pulse 99 08/19/2018 12:33 PM [employer] Temperature 36.6 C (97.8 F) 08/19/2018 12:33 PM [employer] Respiratory Rate 14 08/19/2018 12:33 PM [employer] Oxygen Saturation 91% 08/19/2018 12:33 PM [employer] Inhaled Oxygen Concentration - - Weight 76 kg (167 lb 9.6 oz) 08/19/2018 12:33 PM [employer] Height 167.6 cm (5' 6") 08/19/2018 12:33 PM [employer] Body Mass Index 27.05 08/19/2018 12:33 PM [employer] Plan of Treatment Date Type Specialty Care Team Description 09/11/2018 Office Visit Pulmonology Kj Vergara MD [address] [id number] Health Maintenance Due Date Last Done Comments BREAST CANCER SCREENING 1998 COLON CANCER SCREENING 1998 SHINGRIX VACCINE (1 of 2) 1998 ZOSTER VACCINE 2008 PNEUMOCOCCAL POLYSACCHARIDE VACCINE Completed 04/28/2013 AGE 65 AND OVER PNEUMOCOCCAL-13 Completed 11/14/2015 INFLUENZA VACCINE Completed 08/19/2018, 07/31/2017, 05/30/2016, Additional history exists Procedures Procedure Name Priority Date/Time Associated Diagnosis Comments [id number] Routine 08/13/2018 ECG 12-LEAD Routine 08/10/2018 MRI STROKE BRAIN WO CONTRAST Routine 08/10/2018 CT STROKE BRAIN WO CONTRAST Routine 08/10/2018 XR CHEST 1 VW Routine 08/10/2018 CT STROKE BRAIN WO CONTRAST Routine 08/10/2018 XR CHEST 1 VW Routine 08/10/2018 MRI STROKE BRAIN WO CONTRAST Routine 08/10/2018 after 09/04/2017 Results Miscellaneous Lab Result (08/13/2018) Specimen Blood Narrative Performed At MRI Stroke Brain Wo Contrast (08/10/2018)Only the most recent of2 resultswithin the time period is included. Narrative Performed At CT Stroke Brain Wo Contrast (08/10/2018)Only the most recent of2 resultswithin the time period is included. Narrative Performed At XR Chest 1 Vw (08/10/2018)Only the most recent of2 resultswithin the time period is included. Narrative Performed At ECG 12 lead (08/10/2018) Narrative Performed At after 09/04/2017 Insurance Payer Benefit Plan / Group Subscriber ID Type Phone Address [employer] MEDICARE HU[employer] MEDICARE PPO/PFFS/ERS [facility] xxxxxxxxx PPO Advance Directives For more information, please contact:Meek Lemus[address] [place] [address] Code Status Date Activated Date Inactivated Comments Full Code 02/26/2017 9:20 PM 03/03/2017 7:36 PM Code Status decision reached by: Patient Full Code 02/26/2017 9:07 PM 02/26/2017 9:20 PM Code Status decision reached by: Patient
[2018-09-05] MEDS ORDERED: IPRATROPIUM BROM 0.5MG/2.5ML ONE (11:07)
[2018-09-05] MEDS ORDERED: METHYLPREDNISOLONE 125 MG INJ ONE (11:07)
[2018-09-05] MEDS ORDERED: LEVALBUTEROL 1.25 MG/3 ML NEB ONE ×2 (11:07→12:28)
[2018-09-05] MEDS ORDERED: MAGNESIUM SULFATE 1 gm IVPB 1 GM/100 ML BAG IV ONE (11:08)
[2018-09-05 11:17] LABS: Absolute Lymphocytes (CBC) 0.6 K/uL (0.7-4.9); Absolute Monocytes 0.4 K/uL (0.1-1.3); Absolute Neutrophil 8.1 K/uL (1.8-8.0); Basophils % 0.3 % (0-1.3); Eosinophils % 0.5 % (0-4.4); Hematocrit 41.8 % (36.0-45.0); Lymphocytes % 6.9 % (15.3-44.8); MCH 32.6 pg (27.0-35.0); MCV 94.1 fL (80-100); MPV 8.4 fL (7.6-11.3); Monocytes % 4.1 % (3.3-12.3); RBC Red Blood Cell Count 4.45 M/uL (3.86-4.86)
[2018-09-05 11:20] LABS: Protime INR 0.99
[2018-09-05 11:37] LABS: BUN Blood Urea Nitrogen 13 mg/dL (7-18); Bicarbonate 30 mmol/L (21-32); Glucose Level 108 mg/dL (74-106); Magnesium 2.4 mg/dL (1.8-2.4); NT PRO-BNP 71 pg/mL (<125); Potassium 3.7 mmol/L (3.5-5.1); Sodium Level 139 mmol/L (136-145); Troponin (Emerg Dept Use Only) < 0.02 ng/mL (0.0-0.045)
[2018-09-05] MEDS ORDERED: HYDROCODONE/CHLORPHEN 5 ML/OSYR ONE (12:27)
[2018-09-05 12:28] LABS: Urine Bacteria NONE SEEN /HPF (<20); Urine RBC <5 /HPF (NONE SEEN)
[2018-09-05 12:29] LABS: Urine Culture Reflex Order NOT NEEDED
--- NOTE | 2018-09-05 12:30 | RAD REPORT ---
EXAM DESCRIPTION: RAD - Chest Single View - 09/05/2018 11:42 am CLINICAL HISTORY: Dyspnea;COPD Chest pain. COMPARISON: Chest Pa And Lat (2 Views) dated 11/15/2016; Chest Single View dated 10/22/2016; CHEST SIN GLE VIEW dated 04/30/2012 FINDINGS: Portable technique limits examination quality. Emphysematous changes are present with linear scarring in the right mid lung. The heart is normal in size. No displaced fractures. IMPRESSION: Prominent COPD.
[2018-09-05 14:03] LABS: Urine Blood NEGATIVE (NEG); Urine Glucose NEGATIVE (NEG); Urine Protein NEGATIVE (NEG); Urine Specific Gravity 1.025 (1.005-1.030); Urine pH 6.5 (5.0-7.0)
--- NOTE | 2018-09-05 14:06 | ER ---
Nurse's Notes [facility] Name: Yany Waldrop Age: 68 yrs Sex: Female : 1950 Arrival Date: 09/05/2018 Time: 10:43 Bed 18 Private MD: Out, [facility] Diagnosis: Chronic obstructive pulmonary disease with (acute) exacerbation Presentation: 09/05 10:57 Presenting complaint: Patient states: Low 02 reading at home, 80's on 2 lpm, reports sg productive cough with yellow sputum, wheezes noted, denies F/N/V/D, reports SOB at rest, and worsening with exertion. Transition of care: patient was not received from another setting of care. Onset of symptoms. Risk Assessment: Do you want to hurt yourself or someone else? Patient reports no desire to harm self or others. Initial Sepsis Screen: Does the patient meet any 2 criteria? RR > 20 per min. HR > 90 bpm. Does the patient have a suspected source of infection? Yes: Productive cough/pneumonia. Care prior to arrival: None. 10:57 Method Of Arrival: Ambulatory 10:57 Acuity: ALFONSO 3 sg Historical: - Allergies: 10:59 Keflex; sg - PMHx: 10:59 COPD; sg - Immunization history:: Adult Immunizations up to date. - Social history:: Smoking status: Patient/guardian denies using tobacco. - Ebola Screening: : Patient negative for fever greater than or equal to 101.5 degrees Fahrenheit, and additional compatible Ebola Virus Disease symptoms Patient denies exposure to infectious person Patient denies travel to an Ebola-affected area in the 21 days before illness onset No symptoms or risks identified at this time. Screenin:00 Abuse screen: Denies threats or abuse. Nutritional screening: No deficits noted. em Tuberculosis screening: No symptoms or risk factors identified. Fall Risk None identified. Assessment: 11:00 General: Appears uncomfortable, Behavior is calm, cooperative, Denies fever. Pain: em Complains of pain in diaphragm Pain currently is 0 out of 10 on a pain scale. at worst was 10 out of 10 on a pain scale. Neuro: Level of Consciousness is awake, alert, obeys commands, Oriented to person, place, time, situation. Cardiovascular: Capillary refill < 3 seconds Patient's skin is warm and dry. Rhythm is sinus tachycardia. Respiratory: Reports shortness of breath at rest on exertion cough that is productive, pain with cough since " little over a week" Pain is 10 out of 10 on a pain scale. Airway is patent Respiratory effort is even, Respiratory pattern is regular, tachypnea Breath sounds with wheezes bilaterally. GI: No signs and/or symptoms were reported involving the gastrointestinal system. : Reports "UTI made my COPD worse last time". EENT: No signs and/or symptoms were reported regarding the EENT system. Derm: Skin is intact, Skin is pink, warm \\T\\ dry. Musculoskeletal: Capillary refill Range of motion: intact in all extremities. 11:10 Reassessment: I agree with previous assessment. hb 12:00 Reassessment: Patient appears in no apparent distress at this time. Patient and/or em family updated on plan of care and expected duration. Pain level reassessed. Patient is alert, oriented x 3, equal unlabored respirations, skin warm/dry/pink. 13:03 Reassessment: Patient appears in no apparent distress at this time. Patient and/or em family updated on plan of care and expected duration. Pain level reassessed. Patient is alert, oriented x 3, equal unlabored respirations, skin warm/dry/pink. Patient states feeling better. Patient states symptoms have improved. 13:30 Reassessment: pt placed of room air after breathing treatment, SPO2 88-89%, pt reports em feeling better, denies SOB, provider notified, placed pt on 3 LPM via NC. 13:45 Reassessment: SPO2 90-91% on 3 LPM via NC, RR 22-24 even unlabored, denies pain, A\\T\\Ox4. em 14:11 Reassessment: Patient appears in no apparent distress at this time. Patient and/or em family updated on plan of care and expected duration. Pain level reassessed. Patient is alert, oriented x 3, equal unlabored respirations, skin warm/dry/pink. Dr. Quintero at bedside, pending admission. 15:00 Reassessment: Patient appears in no apparent distress at this time. Patient and/or em family updated on plan of care and expected duration. Pain level reassessed. Patient is alert, oriented x 3, equal unlabored respirations, skin warm/dry/pink. 16:15 Reassessment: Patient appears in no apparent distress at this time. Patient and/or em family updated on plan of care and expected duration. Pain level reassessed. Patient is alert, oriented x 3, equal unlabored respirations, skin warm/dry/pink. Patient states symptoms have improved. Vital Signs: 10:45 Resp 22; Pulse Ox 86% on R/A; sg 10:48 Temp 98.7(O); dh3 10:48 BP 134 / 75; Pulse 106; Resp 21; Pulse Ox 90% on 2 lpm NC; Weight 72.57 kg; Height 5 sg ft. 5 in. (165.10 cm); Pain 8/10; 11:40 BP 137 / 72; Pulse 110; Resp 22; Pulse Ox 92% on 2 lpm NC; em 12:49 BP 131 / 83; Pulse 114; Resp 24; Pulse Ox 100% on Nebulizer Mask; em 13:50 BP 125 / 63; Pulse 111; Resp 23; Pulse Ox 92% on 3 lpm NC; em 15:00 BP 117 / 94; Pulse 114; Resp 22; Pulse Ox 91% on 3 lpm NC; em 15:52 BP 114 / 66; Pulse 108; Resp 23; Temp 98.8(O); Pulse Ox 92% on 3 lpm NC; Pain 0/10; em 10:48 Body Mass Index 26.62 (72.57 kg, 165.10 cm) sg 10:45 pt placed to 2 lpm o2, improved to 90 percent, pt reports normal room air to be 92 sg percent ED Course: 10:43 Patient arrived in ED. sb2 10:43 Out, [facility] is Private Physician. sb2 10:44 [facility]ced[facility]-C [facility] kb 10:44 Collin Coughlin MD is Attending Physician. kb 10:57 Car Toribio LVN is Primary Nurse. em 10:58 Triage completed. sg 11:00 Arm band placed on. sg 11:00 Patient has correct armband on for positive identification. Bed in low position. Call em light in reach. Side rails up X2. Adult w/ patient. 11:00 No provider procedures requiring assistance completed. em 11:09 Initial lab(s) drawn, by me, sent to lab. Inserted saline lock: 22 gauge in right dh3 wrist, using aseptic technique. Blood collected. 11:46 EKG done, by ED staff, reviewed by Laura LIANG. 3 12:03 Urine collected: clean catch specimen, checo colored. 3 14:03 Og Quintero DO is Hospitalizing Provider. kb 16:31 Patient admitted, IV remains in place. em Administered Medications: 11:02 Drug: SOLU-Medrol 125 mg Route: IVP; Site: right wrist; hb 11:44 Follow up: Response: No adverse reaction em 11:05 Drug: AtroVENT Aerosol 0.5 mg Route: Inhalation; em 11:44 Follow up: Response: No adverse reaction; Marked relief of symptoms em 11:05 Drug: Xopenex (3) 1.25 mg Route: Inhalation; em 11:44 Follow up: Response: No adverse reaction; Marked relief of symptoms em 11:06 Drug: Magnesium Sulfate 1 grams Route: IVPB; Infused Over: 1 hrs; Site: right wrist; em 12:20 Follow up: Response: No adverse reaction; IV Status: Completed infusion; IV Intake: em 100ml 12:26 Drug: Xopenex (3) 1.25 mg Route: Inhalation; em 13:09 Follow up: Response: No adverse reaction; Marked relief of symptoms em 12:27 Drug: Tussionex Pennkinetic ER 5 ml Route: PO; em 13:09 Follow up: Response: No adverse reaction; Marked relief of symptoms em Intake: 12:20 IV: 100ml; Total: 100ml. em Outcome: 14:04 Decision to Hospitalize by Provider. kb 16:31 Admitted to Med/surg accompanied by tech, via wheelchair, room 426, with oxygen, with em chart, Report called to LEIGHA Mayberry 16:31 Condition: good 16:31 Instructed on the need for admit, Demonstrated understanding of instructions. 16:46 Patient left the ED. em Signatures: Lauar Sauceda FNP-C FNP-CkMichael Mercado RN RN sg Car Toribio, LAMINATING MACHINE FEEDER LAMINATING MACHINE FEEDER em Eun Rockwell RN RN hb Herrera, Deanna 3 Kortney Hidalgo2 Corrections: (The following items were deleted from the chart) 11:07 10:48 BP 134 / 75; Pulse 106bpm; Resp 21bpm; Pulse Ox 9% 2 lpm Nasal Cannula; 72.57 kg; sg Height 5 ft. 5 in.; BMI: 26.6; Pain 8/10; dh3 13:03 11:00 Reassessment: Patient appears in no apparent distress at this time. Patient em and/or family updated on plan of care and expected duration. Pain level reassessed. Patient is alert, oriented x 3, equal unlabored respirations, skin warm/dry/pink. em 16:31 16:31 IV discontinued, intact, bleeding controlled, No redness/swelling at site. em Pressure dressing applied, em
--- NOTE | 2018-09-05 14:06 | EDPHYS ---
Physician Documentation [facility] Name: Yany Waldrop Age: 68 yrs Sex: Female : 1950 Arrival Date: 09/05/2018 Time: 10:43 Bed 18 Private MD: Out, [facility] ED Physician Collin Coughlin HPI: 09/05 11:09 This 68 yrs old Female presents to ER via Ambulatory with complaints of kb Breathing Difficulty. 11:09 The patient has shortness of breath at rest, and the patient has a history of COPD. kb Onset: The symptoms/episode began/occurred 1 week(s) ago. Duration: The symptoms are continuous. The patient's shortness of breath is aggravated by exertion, is alleviated by nothing. Associated signs and symptoms: Pertinent positives: productive cough. Severity of symptoms: At their worst the symptoms were moderate in the emergency department the symptoms are unchanged. The patient has experienced similar episodes in the past, chronically. The patient has not recently seen a physician. Pt states "I've been sick for about a week. I called my doctor and he prescribed steroids and antibiotics, but the cough continued so I called back for cough medication. I've been taking all of that, but it isn't helping." Pt has been on prednisone, bactrim and tessalon perles. Uses oxygen at home at night, has neb and solution but did not use it. . Historical: - Allergies: 10:59 Keflex; sg - PMHx: 10:59 COPD; sg - Immunization history:: Adult Immunizations up to date. - Social history:: Smoking status: Patient/guardian denies using tobacco. - Ebola Screening: : Patient negative for fever greater than or equal to 101.5 degrees Fahrenheit, and additional compatible Ebola Virus Disease symptoms Patient denies exposure to infectious person Patient denies travel to an Ebola-affected area in the 21 days before illness onset No symptoms or risks identified at this time. ROS: 11:07 Constitutional: Negative for fever, chills, and weight loss, Cardiovascular: Negative kb for chest pain, palpitations, and edema, Abdomen/GI: Negative for abdominal pain, nausea, vomiting, diarrhea, and constipation, Back: Negative for injury and pain, : Negative for injury, bleeding, discharge, and swelling, MS/Extremity: Negative for injury and deformity, Skin: Negative for injury, rash, and discoloration, Neuro: Negative for headache, weakness, numbness, tingling, and seizure. 11:07 Respiratory: Positive for cough, dyspnea on exertion, shortness of breath, wheezing, Negative for hemoptysis, orthopnea, pleurisy. Exam: 11:08 Constitutional: This is a well developed, well nourished patient who is awake, alert, kb and in no acute distress. Head/Face: Normocephalic, atraumatic. ENT: Nares patent. No nasal discharge, no septal abnormalities noted. Tympanic membranes are normal and external auditory canals are clear. Oropharynx with no redness, swelling, or masses, exudates, or evidence of obstruction, uvula midline. Mucous membranes moist. Neck: Trachea midline, no thyromegaly or masses palpated, and no cervical lymphadenopathy. Supple, full range of motion without nuchal rigidity, or vertebral point tenderness. No Meningismus. Chest/axilla: Normal chest wall appearance and motion. Nontender with no deformity. No lesions are appreciated. Cardiovascular: Regular rate and rhythm with a normal S1 and S2. No gallops, murmurs, or rubs. Normal PMI, no JVD. No pulse deficits. Abdomen/GI: Soft, non-tender, with normal bowel sounds. No distension or tympany. No guarding or rebound. No evidence of tenderness throughout. Skin: Warm, dry with normal turgor. Normal color with no rashes, no lesions, and no evidence of cellulitis. MS/ Extremity: Pulses equal, no cyanosis. Neurovascular intact. Full, normal range of motion. Neuro: Awake and alert, GCS 15, oriented to person, place, time, and situation. Cranial nerves II-XII grossly intact. Motor strength 5/5 in all extremities. Sensory grossly intact. Cerebellar exam normal. Normal gait. 11:08 Respiratory: mild respiratory distress is noted, Respirations: labored breathing, that is mild, Breath sounds: wheezing: expiratory that is moderate, is heard diffusely. Vital Signs: 10:45 Resp 22; Pulse Ox 86% on R/A; sg 10:48 Temp 98.7(O); dh3 10:48 BP 134 / 75; Pulse 106; Resp 21; Pulse Ox 90% on 2 lpm NC; Weight 72.57 kg; Height 5 sg ft. 5 in. (165.10 cm); Pain 8/10; 11:40 BP 137 / 72; Pulse 110; Resp 22; Pulse Ox 92% on 2 lpm NC; em 12:49 BP 131 / 83; Pulse 114; Resp 24; Pulse Ox 100% on Nebulizer Mask; em 13:50 BP 125 / 63; Pulse 111; Resp 23; Pulse Ox 92% on 3 lpm NC; em 15:00 BP 117 / 94; Pulse 114; Resp 22; Pulse Ox 91% on 3 lpm NC; em 15:52 BP 114 / 66; Pulse 108; Resp 23; Temp 98.8(O); Pulse Ox 92% on 3 lpm NC; Pain 0/10; em 10:48 Body Mass Index 26.62 (72.57 kg, 165.10 cm) sg 10:45 pt placed to 2 lpm o2, improved to 90 percent, pt reports normal room air to be 92 sg percent MDM: 10:45 Patient medically screened. kb 11:06 Data reviewed: vital signs, nurses notes. Data interpreted: Pulse oximetry: on room air kb is 87 %. Interpretation: hypoxia. 13:30 Counseling: I had a detailed discussion with the patient and/or guardian regarding: the kb historical points, exam findings, and any diagnostic results supporting the discharge/admit diagnosis, lab results, radiology results. ED course: Pt given the option of staying in the hospital for observation or going home. Pt has appt with farm mechanic in [place] this week and prefers to go home and follow up. Reports she has the same things at home that we would give her here. . 14:01 ED course: Work of breathing still increased. Oxygen saturation maintains 88-89% on kb room air after treatments. 88% on 2L, 91% on 3L. Will admit pt for obs.. 09/05 10:50 Order name: Magnesium kb 09/05 10:50 Order name: Basic Metabolic Panel kb 09/05 10:50 Order name: CBC with Diff kb 09/05 10:50 Order name: NT PRO-BNP kb 09/05 10:50 Order name: PT-INR kb 09/05 10:50 Order name: Troponin (emerg Dept Use Only) kb 09/05 10:50 Order name: Urine Microscopic Only kb 09/05 11:18 Order name: CBC with Automated Diff; Complete Time: 11:19 EDMS 09/05 11:23 Order name: Protime (+INR); Complete Time: 11:30 EDMS 09/05 11:37 Order name: Basic Metabolic Panel; Complete Time: 11:40 EDMS 09/05 11:37 Order name: Troponin (Emerg Dept Use Only); Complete Time: 11:40 EDMS 09/05 11:37 Order name: NT PRO-BNP; Complete Time: 11:40 EDMS 09/05 11:37 Order name: Magnesium; Complete Time: 11:40 EDMS 09/05 12:03 Order name: Urine Dipstick--Ancillary (enter results) bd 09/05 10:50 Order name: XRAY Chest (1 view) kb 09/05 10:50 Order name: EKG; Complete Time: 10:51 kb 09/05 10:50 Order name: Cardiac monitoring; Complete Time: 11:46 kb 09/05 10:50 Order name: EKG - Nurse/Tech; Complete Time: 11:47 kb 09/05 12:30 Order name: Urine Microscopic Only; Complete Time: 12:32 EDMS 09/05 12:30 Order name: RAD; Complete Time: 12:32 EDMS 09/05 14:09 Order name: Flu kb 09/05 14:47 Order name: Urine Dipstick-Ancillary; Complete Time: 14:49 EDMS 09/05 14:52 Order name: Influenza Screen (A ; Complete Time: 14:54 EDMS 09/05 15:46 Order name: Procalcitonin; Complete Time: 15:48 EDMS 09/05 10:50 Order name: IV Saline Lock; Complete Time: 11:14 kb 09/05 10:50 Order name: Labs collected and sent; Complete Time: 11:14 kb 09/05 10:50 Order name: O2 Per Protocol; Complete Time: 11:47 kb 09/05 10:50 Order name: O2 Sat Monitoring; Complete Time: 11:47 kb 09/05 10:50 Order name: Urine Dipstick-Ancillary (obtain specimen); Complete Time: 12:03 kb Administered Medications: 11:02 Drug: SOLU-Medrol 125 mg Route: IVP; Site: right wrist; hb 11:44 Follow up: Response: No adverse reaction em 11:05 Drug: AtroVENT Aerosol 0.5 mg Route: Inhalation; em 11:44 Follow up: Response: No adverse reaction; Marked relief of symptoms em 11:05 Drug: Xopenex (3) 1.25 mg Route: Inhalation; em 11:44 Follow up: Response: No adverse reaction; Marked relief of symptoms em 11:06 Drug: Magnesium Sulfate 1 grams Route: IVPB; Infused Over: 1 hrs; Site: right wrist; em 12:20 Follow up: Response: No adverse reaction; IV Status: Completed infusion; IV Intake: em 100ml 12:26 Drug: Xopenex (3) 1.25 mg Route: Inhalation; em 13:09 Follow up: Response: No adverse reaction; Marked relief of symptoms em 12:27 Drug: Tussionex Pennkinetic ER 5 ml Route: PO; em 13:09 Follow up: Response: No adverse reaction; Marked relief of symptoms em Disposition: 09/05/18 14:04 Hospitalization ordered by Og Quintero for Observation. Preliminary diagnosis is Chronic obstructive pulmonary disease with (acute) exacerbation. - Bed requested for Telemetry/MedSurg (observation). - Status is Observation. em - Condition is Stable. - Problem is new. - Symptoms are unchanged. UTI on Admission? No Addendum: 09/07/2018 07:26 Co-signature as Attending Physician, Collin Coughlin MD I agree with the assessment and c salgado plan of care. Signatures: Dispatcher [employer] Laura Quiles, ONCOLOGY PATIENT NAVIGATOR-C ONCOLOGY PATIENT NAVIGATOR-Ckb Linnette Grier Steven, Collin Benavidez RN, MD MD cha Munoz, Edgar, PRINTED CIRCUIT PHOTOGRAPHER PRINTED CIRCUIT PHOTOGRAPHER Eun Rockwell, RN RN Corrections: (The following items were deleted from the chart) 09/05 14:01 13:30 Counseling: I had a detailed discussion with the patient and/or guardian emilia regarding: the historical points, exam findings, and any diagnostic results supporting the discharge/admit diagnosis, lab results, radiology results, the need for outpatient follow up, a farm mechanic, to return to the emergency department if symptoms worsen or persist or if there are any questions or concerns that arise at home, kb 14:07 11:08 Respiratory: mild respiratory distress is noted, Respirations: labored breathing, kb that is mild, Breath sounds: wheezing: expiratory that is moderate, is heard diffusely, kb 15:24 14:04 Hospitalization Ordered by Og Quintero DO for Observation. Preliminary bd diagnosis is Chronic obstructive pulmonary disease with (acute) exacerbation. Bed requested for Telemetry/MedSurg (observation). Status is Observation. Condition is Stable. Problem is new. Symptoms are unchanged. UTI on Admission? No. kb 16:46 15:24 09/05/2018 14:04 Hospitalization Ordered by Og Quintero DO for Observation. em Preliminary diagnosis is Chronic obstructive pulmonary disease with (acute) exacerbation. Bed requested for Telemetry/MedSurg (observation). Status is Observation. Condition is Stable. Problem is new. Symptoms are unchanged. UTI on Admission? No. bd
[2018-09-05] MEDS ORDERED: BENZONATATE 100 MG CAP PO PRN (14:20)
[2018-09-05] MEDS ORDERED: ACETAMINOPHEN 500 MG TAB PO PRN (14:20)
[2018-09-05] MEDS ORDERED: ALBUTEROL 2.5 MG/3 ML NEB SOL NEB PRN (14:20)
[2018-09-05] MEDS ORDERED: ONDANSETRON 4 MG/2 ML VIAL IV PRN (14:20)
--- NOTE | 2018-09-05 14:35 | P.HP ---
Certification for Inpatient Patient admitted to: Observation With expected LOS: <2 Midnights Patient will require the following post-hospital care: None Practitioner: I am a practitioner with admitting privileges, knowledge of patient current condition, hospital course, and medical plan of care. Services: Services provided to patient in accordance with Admission requirements found in Title 42 Section 412.3 of the Code of Federal Regulations Patient History Date of Service: 09/05/18 Primary Care Provider: Dr. Gutierrez([place], [place]); Pulmonary-Dr. Vergara([place], [place]) Reason for admission: Shortness of breath History of Present Illness: 68-year-old female presented to the emergency room with shortness of breath. Patient reports shortness of breath over the past week. She had been seen by her information security architect and given steroid medication with antibiotic-Bactrim. Her symptoms did not improve. Patient with underlying COPD in uses oxygen at night. She is a former smoker. Patient continue to have increase congestion, wheezing. No fever, chills. No nausea vomiting. Patient came to the ER for further evaluation. In the ER patient evaluated. She has found to have O2 saturations around 87% on room air. Patient given treatments in the ER including IV steroids and breathing treatments. On lab white count 9.2, hemoglobin 14.5, BUN of 13, creatinine 1.1 with a GFR 49. Sodium 139, potassium 3.7. Chest x-ray showed COPD changes. No pneumonia noted. BMP unremarkable. Troponin unremarkable. Patient admitted for further treatment. When I saw the patient ER, she still reported a cough. Shortness of breath improved. She is a former smoker and has advanced COPD who uses oxygen mainly at night. She is seen by pulmonology in [facility]. Allergies cephalexin monohydrate [From Keflex] Allergy (Intermediate, Verified 07/29/18 09 :34) hypotention hydrocodone [Hydrocodone] Adverse Reaction (Mild, Verified 04/30/12 12:32) insomnia, jittery Home medications list reviewed: Yes Home Medications: Albuterol 1 puff IH PRN PRN 07/22/18 Fluticasone/Salmeterol [Advair 250-50 Diskus] 1 puff IH DAILY 07/22/18 Ipratropium/Albuterol Sulfate [Combivent Respimat 20-100 Mcg] 1 puff IH PRN PRN 07/22/18 Amitriptyline HCl 150 mg PO BEDTIME 08/10/18 Ciprofloxacin HCl [Cipro 500 MG Tablet] 1 tab PO Q12H 08/10/18 Famotidine 40 mg PO BEDTIME 08/10/18 Levocetirizine Dihydrochloride [Xyzal] 5 mg PO DAILY 08/10/18 Montelukast [Singulair*] 10 mg PO BEDTIME 08/10/18 PARoxetine HCl [Paxil*] 20 mg PO DAILY 08/10/18 Tiotropium [Spiriva Handihaler*] 18 mcg IH BEDTIME 08/10/18 Meclizine HCl [Antivert*] 25 mg PO Q6H PRN #30 tab 08/11/18 Pantoprazole [Protonix Tab*] 40 mg PO DAILY 08/11/18 - Past Medical/Surgical History Diabetic: No -: COPD, home oxygen at night -: Former tobacco use -: Allergic rhinitis -: GERD -: Depression with anxiety -: Hysterectomy -: Back surgery -: Sinus surgery -: Cholecystectomy Psychosocial/ Personal History: She is . She has 6 children. She does not work. - Family History Mother -: Diabetes Father -: Lung disease - Social History Smoking Status: Former smoker Alcohol use: No CD- Drugs: No Caffeine use: Yes Place of Residence: Home Review of Systems General: As per HPI Eyes: Unremarkable ENT: Nose Congestion, As per HPI Respiratory: Cough, Shortness of Breath, Wheezing, As per HPI Cardiovascular: Unremarkable Gastrointestinal: Unremarkable Genitourinary: Unremarkable Musculoskeletal: Unremarkable Integumentary: Unremarkable Neurological: Unremarkable Lymphatics: Unremarkable Physical Examination - Physical Exam General: Alert, In no apparent distress, Oriented x3, Cooperative HEENT: Atraumatic, Normocephalic, PERRLA, Other (Nasal congestion noted bilateral) Neck: Supple, No Thyromegaly Respiratory: Expiratory wheezes, Inspiratory wheezes Cardiovascular: Normal pulses, Regular rate/rhythm Gastrointestinal: Normal bowel sounds, Soft and benign, Non-distended, No tenderness, No masses, No rebound, No guarding Musculoskeletal: No erythema, No tenderness, No warmth Integumentary: No tenderness/swelling, No erythema, No warmth, No cyanosis Neurological: Normal speech, Normal strength at 5/5 x4 extr, Normal tone, Normal affect - Studies Laboratory Data (last 24 hrs) 12/01/18 11:09: PT 11.7, INR 0.99 09/05/18 11:09: WBC 9.2, Hgb 14.5, Hct 41.8, Plt Count 242 09/05/18 11:09: Sodium 139, Potassium 3.7, BUN 13, Creatinine 1.10, Glucose 108 H, Magnesium 2.4 Assessment and Plan - Plan Impression: Shortness of breath secondary to COPD exacerbation with advanced COPD with Home O2 Allergic rhinitis GERD Depression with anxiety Plan: Shortness of breath secondary to COPD exacerbation with advanced COPD with Home O2: Patient will be admitted. Will continue with oxygen to maintain sats above 90%. Will start prednisone, COPD medication. Provide DVT prophylaxis. Will wean off oxygen. Will provide medication for cough and congestion. Will recheck chest x-ray. Will reassess tomorrow. Possible discharge as early as tomorrow. Allergic rhinitis: Will continue with medication. Will monitor closely. GERD: Will continue with medication. Depression with anxiety: Will continue with medication. Discharge Plan: Home Plan to discharge in: 24 Hours - Advance Directives Does patient have a Living Will: Yes Does patient have a Durable POA for Healthcare: Yes - Code Status/Comfort Care Code Status Assessed: Yes (Full code.) Time Spent Managing Pts Care (In Minutes): 55
[2018-09-05] MEDS: NA CHLORIDE 0.9% 1,000 ML IV SCH ×2 (15:00→20:30)
[2018-09-05 17:58] VITALS: BMI 27.3
[2018-09-05] MEDS: predniSONE 20 MG TAB PO SCH (20:30)
[2018-09-05] MEDS: FAMOTIDINE 20 MG TAB PO SCH (20:30)
[2018-09-05] MEDS: GUAIFENESIN 600 MG SA TAB PO SCH (20:30)
[2018-09-05] MEDS: ARFORMOTEROL TARTRATE 15 MCG/2 ML VIAL.NEB NEB SCH (20:55)
[2018-09-05] MEDS: IPRATROPIUM BROM 0.5MG/2.5ML NEB PRN (20:55)
[2018-09-05] MEDS: FLUTICASONE 50MCG NASAL SPRAY NAS SCH (21:00)
[2018-09-05] MEDS ORDERED: MONTELUKAST 10 MG TAB PO SCH (21:00)
[2018-09-06 06:27] LABS: Absolute Lymphocytes (CBC) 0.7 K/uL (0.7-4.9); Absolute Monocytes 0.6 K/uL (0.1-1.3); Absolute Neutrophil 4.8 K/uL (1.8-8.0); Basophils % 0.1 % (0-1.3); Hematocrit 36.4 % (36.0-45.0); Lymphocytes % 11.6 % (15.3-44.8); MCH 32.7 pg (27.0-35.0); MCV 94.6 fL (80-100); MPV 8.1 fL (7.6-11.3); Monocytes % 10.5 % (3.3-12.3); RBC Red Blood Cell Count 3.85 M/uL (3.86-4.86)
[2018-09-06 06:50] LABS: Magnesium 2.5 mg/dL (1.8-2.4); Potassium 4.3 mmol/L (3.5-5.1)
--- NOTE | 2018-09-06 07:33 | RAD REPORT ---
EXAM DESCRIPTION: RAD - Chest Pa And Lat (2 Views) - 09/06/2018 6:32 am CLINICAL HISTORY: COPD, shortness of breath COMPARISON: September 05 TECHNIQUE: PA and lateral views of the chest were obtained. FINDINGS: The lungs are extensively fibrotic with large bullous cavities in the upper lung magdaleno. T his is a stable baseline pattern. Interstitial pattern has increased in the lateral lung bases. Hear t size is normal and central vasculature is within normal limits. No pleural effusion or pneumothora x seen. No acute bony finding noted. No aortic abnormality. IMPRESSION: New or progressive interstitial edema or infiltrate superimposed on baseline severe COPD .
[2018-09-06] MEDS ORDERED: LACTULOSE 20 GM/30 ML UCUP PO PRN (07:57)
[2018-09-06] MEDS: IPRATROPIUM BROM 0.5MG/2.5ML NEB PRN (08:08)
[2018-09-06] MEDS: ARFORMOTEROL TARTRATE 15 MCG/2 ML VIAL.NEB NEB SCH (08:08)
[2018-09-06] MEDS: FLUTICASONE 50MCG NASAL SPRAY NAS SCH (08:11)
[2018-09-06] MEDS ORDERED: HOME MED 1 EA UNK (Levocetirizine Dihydrochloride [Xyzal] 5 MG) PO SCH (09:00)
[2018-09-06] MEDS ORDERED: ENOXAPARIN 40 MG/0.4 ML SQ SCH (09:00)
[2018-09-06] MEDS ORDERED: PARoxetine HCl 10 MG TAB PO SCH (09:00)
[2018-09-06] MEDS ORDERED: TIOTROPIUM 5 SPRAYS/INHALER IH SCH (09:00)
[2018-09-06] MEDS ORDERED: DOCUSATE NA 100 MG CAP PO SCH (09:00)
[2018-09-06 09:15] VITALS: O2SAT 97
[2018-09-06] MEDS: FAMOTIDINE 20 MG TAB PO SCH (09:48)
[2018-09-06] MEDS: predniSONE 20 MG TAB PO SCH (09:48)
[2018-09-06] MEDS: GUAIFENESIN 600 MG SA TAB PO SCH (09:48)
--- NOTE | 2018-09-06 10:17 | RAD REPORT ---
EXAM DESCRIPTION: CT - Thorax [place] - 09/06/2018 8:51 am CLINICAL HISTORY: COPD, pneumonia COMPARISON: Chest exam September 06, CT exam January 2014, portable exam September 05, 2018 TECHNIQUE: Axial 5 mm thick images of the chest were obtained without IV contrast. All CT scans are performed using dose optimization technique as appropriate and may include automated exposure control or mA/KV adjustment according to patient size. FINDINGS: No consolidation or focal mass the lung parenchyma. Patient has severe COPD with large bul lous cavities in the upper half of each lung field. Interstitial pattern in each lung base, more so o n the right, has increased from the 2013 study. On plain film the interstitial pattern has increased slightly from the September 05 imaging. Interstitial edema or infiltrate is suspected. Pattern is onl y slightly worse than the baseline presentation. No pleural effusion. No pneumothorax or pleural based mass. No abnormal mediastinal or hilar masses or lymphadenopathy seen. No gross aortic or pulmonary artery finding suspected. Assessment is limited in the absence of IV contrast. No pericardial thickening or effusion. No chest wall mass or abnormal axillary lymphadenopathy. Limited upper abdomen imaging shows no acute finding. IMPRESSION: Severe baseline COPD with minimal increased interstitial opacification in each base from infiltrate or edema. No focal consolidation or mass. No abnormal lymphadenopathy.
[2018-09-06 12:28] VITALS: BP 124/61; TEMP 97.1
--- NOTE | 2018-09-06 14:49 | P.DS ---
Admission Date: 09/05/18 Discharge Date: 09/06/18 Primary Care Provider: Dr. Gutierrez([place], [place]); Pulmonary-Dr. Vergara([place], [place]) Disposition: ROUTINE DISCHARGE Discharge Condition: GOOD Reason for Admission: Shortness of breath Consultations: None Procedures: CT Scan: COMPARISON: Chest exam September 06, CT exam January 2014, portable exam September 05, 2018 TECHNIQUE: Axial 5 mm thick images of the chest were obtained without IV contrast. All CT scans are performed using dose optimization technique as appropriate and may include automated exposure control or mA/KV adjustment according to patient size. FINDINGS: No consolidation or focal mass the lung parenchyma. Patient has severe COPD with large bullous cavities in the upper half of each lung field. Interstitial pattern in each lung base, more so on the right, has increased from the 2013 study. On plain film the interstitial pattern has increased slightly from the September 05 imaging. Interstitial edema or infiltrate is suspected. Pattern is only slightly worse than the baseline presentation. No pleural effusion. No pneumothorax or pleural based mass. No abnormal mediastinal or hilar masses or lymphadenopathy seen. No gross aortic or pulmonary artery finding suspected. Assessment is limited in the absence of IV contrast. No pericardial thickening or effusion. No chest wall mass or abnormal axillary lymphadenopathy. Limited upper abdomen imaging shows no acute finding. IMPRESSION: Severe baseline COPD with minimal increased interstitial opacification in each base from infiltrate or edema. No focal consolidation or mass. No abnormal lymphadenopathy. Medical Problem list: Shortness of breath secondary to COPD exacerbation with advanced COPD with Home O2 Allergic rhinitis GERD Depression with anxiety Brief History of Present Illness: 68-year-old female presented to the emergency room with shortness of breath. Patient reports shortness of breath over the past week. She had been seen by her lace pinner and given steroid medication with antibiotic-Bactrim. Her symptoms did not improve. Patient with underlying COPD in uses oxygen at night. She is a former smoker. Patient continue to have increase congestion, wheezing. No fever, chills. No nausea vomiting. Patient came to the ER for further evaluation. In the ER patient evaluated. She has found to have O2 saturations around 87% on room air. Patient given treatments in the ER including IV steroids and breathing treatments. On lab white count 9.2, hemoglobin 14.5, BUN of 13, creatinine 1.1 with a GFR 49. Sodium 139, potassium 3.7. Chest x-ray showed COPD changes. No pneumonia noted. BMP unremarkable. Troponin unremarkable. Patient admitted for further treatment. When I saw the patient ER, she still reported a cough. Shortness of breath improved. She is a former smoker and has advanced COPD who uses oxygen mainly at night. She is seen by pulmonology in [facility]. Hospital Course: Patient presented with shortness of breath secondary to COPD exacerbation. Patient with advanced COPD on home oxygen. Patient was admitted for treatment. Patient did well in the course of her stay. Symptoms improved. At discharge she will continue with prednisone 20 mg 1 pill twice daily for 5 days then 1 pill once daily for 5 days. She will continue with her COPD medication including Advair 250/50mcg 1 puffs twice daily, Spiriva 1 puff daily, Combivent 2 puffs 3 times a day as needed for shortness of breath, and albuterol one unit dose 3 times a day as needed for shortness of breath. Patient will be given Tessalon Perles 100 mg 1 pill 3 times a day as needed for cough. Patient will continue with home oxygen to maintain sats above 90%. Patient will need to limit her activities due to her advanced COPD. Recommendation for the patient follow up with her lace pinner this week to follow up this hospitalization. Patient has allergic rhinitis. Patient will continue with Xyzal 5 mg daily and Singulair 10 mg daily. Patient may use Flonase 1 spray per nostril twice daily. Patient has GERD. She will continue with Pepcid 40 mg 1 pill twice daily. Patient has depression with anxiety. She will continue with her medication- Paxil 20 mg daily and Elavil 150 mg at bedtime. Patient with mild constipation. Patient will be given docusate 100 mg daily as a stool softener. Vital Signs/Physical Exam: Temp Pulse Resp BP Pulse Ox 97.1 F 98 H 18 124/61 98 09/06/18 12:00 09/06/18 12:00 09/06/18 12:00 09/06/18 12:00 09/06/18 12:00 General: Alert, In no apparent distress, Oriented x3, Cooperative HEENT: Atraumatic Neck: Supple Respiratory: Expiratory wheezes (But overall improved) Cardiovascular: Normal pulses, Regular rate/rhythm Gastrointestinal: Normal bowel sounds, Soft and benign, Non-distended, No tenderness, No masses, No rebound, No guarding Musculoskeletal: No erythema, No tenderness, No warmth Integumentary: No tenderness/swelling, No erythema, No warmth, No cyanosis Neurological: Normal speech, Normal strength at 5/5 x4 extr, Normal tone, Normal affect Laboratory Data at Discharge: WBC 6.1 K/uL (4.3-10.9) D 09/06/18 05:23 Hgb 12.6 g/dL (12.0-15.0) 09/06/18 05:23 Hct 36.4 % (36.0-45.0) 09/06/18 05:23 Plt Count 222 K/uL (152-406) 09/06/18 05:23 PT 11.7 SECONDS (9.5-12.5) 09/05/18 11:09 INR 0.99 09/05/18 11:09 Sodium 139 mmol/L (136-145) 09/06/18 05:23 Potassium 4.3 mmol/L (3.5-5.1) 09/06/18 05:23 BUN 13 mg/dL (7-18) 09/06/18 05:23 Creatinine 0.90 mg/dL (0.55-1.3) 09/06/18 05:23 Glucose 117 mg/dL (74-106) H 09/06/18 05:23 Magnesium 2.5 mg/dL (1.8-2.4) H 09/06/18 05:23 Home Medications: Fluticasone/Salmeterol [Advair 250-50 Diskus] 1 puff IH DAILY 07/22/18 Ipratropium/Albuterol Sulfate [Combivent Respimat 20-100 Mcg] 1 puff IH PRN PRN 07/22/18 Amitriptyline HCl 150 mg PO BEDTIME 08/10/18 Famotidine 40 mg PO BEDTIME 08/10/18 Levocetirizine Dihydrochloride [Xyzal] 5 mg PO DAILY 08/10/18 Montelukast [Singulair*] 10 mg PO BEDTIME 08/10/18 PARoxetine HCl [Paxil*] 20 mg PO DAILY 08/10/18 Tiotropium [Spiriva Handihaler*] 18 mcg IH BEDTIME 08/10/18 Albuterol Neb [Proventil 0.083% Neb Soln] 1 puff IH ONCE PRN 09/05/18 Benzonatate [Tessalon Perle*] 100 mg PO TID PRN #20 cap 09/06/18 Docusate [Colace Cap*] 100 mg PO DAILY #30 cap 09/06/18 predniSONE [Prednisone*] 20 mg PO SEECOM #15 tab 09/06/18 New Medications: Benzonatate [Tessalon Perle*] 100 mg PO TID PRN #20 cap PRN Reason: Cough Docusate [Colace Cap*] 100 mg PO DAILY #30 cap predniSONE [Prednisone*] 20 mg PO SEECOM #15 tab Patient Discharge Instructions: 1. Patient will need to follow up with her PCP in 1 week to follow up this hospitalization. 2. Patient presented with shortness of breath secondary to COPD exacerbation. Patient with advanced COPD on home oxygen. Patient was admitted for treatment. Patient did well in the course of her stay. Symptoms improved. At discharge she will continue with prednisone 20 mg 1 pill twice daily for 5 days then 1 pill once daily for 5 days. She will continue with her COPD medication including Advair 250/50mcg 1 puffs twice daily, Spiriva 1 puff daily, Combivent 2 puffs 3 times a day as needed for shortness of breath, and albuterol one unit dose 3 times a day as needed for shortness of breath. Patient will be given Tessalon Perles 100 mg 1 pill 3 times a day as needed for cough. Patient will continue with home oxygen to maintain sats above 90%. Patient will need to limit her activities due to her advanced COPD. Recommendation for the patient follow up with her lace pinner this week to follow up this hospitalization. 3. Patient has allergic rhinitis. Patient will continue with Xyzal 5 mg daily and Singulair 10 mg daily. Patient may use Flonase 1 spray per nostril twice daily. 4. Patient has GERD. She will continue with Pepcid 40 mg 1 pill twice daily. 5. Patient has depression with anxiety. She will continue with her medication- Paxil 20 mg daily and Elavil 150 mg at bedtime. 6. Patient with mild constipation. Patient will be given docusate 100 mg daily as a stool softener. Diet: AHA Activity: Fall precautions Time spent managing pt's care (in minutes): 55
--- NOTE | 2018-09-06 16:51 | EKG ---
Test Date: 2018-09-05 Test Time: 11:42:08 Tufting Machine Fixer: MIRTHA MEASUREMENT RESULTS: Intervals: Rate: 110 DE: 186 QRSD: 88 QT: 332 QTc: 449 [place]: P: 86 DE: 186 QRS: 54 T: 73 INTERPRETIVE STATEMENTS: Sinus tachycardia Otherwise normal ECG Compared to ECG 08/10/2018 10:27:17 Sinus rhythm no longer present Electronically Signed On 09-06-18 16:50:40 TRAFFIC SUPERVISOR by Mendez Dacosta
[2018-09-06] MEDS ORDERED: AMITRIPTYLINE HCL 150 MG PO SCH (21:00)
[2018-09-06] MEDS ORDERED: AMITRIPTYLINE 50 MG TAB PO SCH (21:00)
[2018-09-07] MEDS ORDERED: CETIRIZINE HCL 5 MG TABLET PO SCH (09:00)
== END 2018-09-06 15:27 | disposition home or self-care (01) ==
LOC: ER 10:39 → ERHOLD 14:06 → 4TH 16:34
PROVIDERS: ADMIT Family Medicine; ATTEND Family Medicine
DX: J44.1 Chronic obstructive pulmonary disease with (acute) exacerbation (principal); J30.9 Allergic rhinitis, unspecified; K21.9 Gastro-esophageal reflux disease without esophagitis; Z87.891 Personal history of nicotine dependence; F41.8 Other specified anxiety disorders; K59.00 Constipation, unspecified; Z99.81 Dependence on supplemental oxygen
CPT/HCPCS: 36415; 71045; 71046; 71250; 80048 ×2; 83735 ×2; 83880; 84145; 84484; 85025 ×2; 85610; 87040 ×2; 87070; 87077; 87186; 87205; 87804 ×2; 93005; 94640; 96365; 96375; 99285; G0378 ×2; J1650; J2930; J3475; J7030 ×2; J7605 ×2; 81003; 81015; J7512

== ENCOUNTER 2018-11-16 07:15 | Day surgery (SDC) | payer OTHER ==
--- OUTSIDE RECORDS SUMMARY | 2018-11-16 07:17 | XMS REPORT | Clinical Summary ---
:1950 Author Organization [facility] Address [address] [place] [address] Care Team Providers Name Role Phone Dexter Gutierrez MD Primary Care Provider Allergies Active Allergy Reactions Severity Noted Date Comments Cephalexin 04/02/2016 Medications Medication Sig Dispensed Refills Start End Status Date Date tiotropium (SPIRIVA) Place 1 capsule 0 Active 18 mcg per inhalation into inhaler and capsule inhale once daily. ipratropium-albuterol Inhale 2 puffs 0 Active (COMBIVENT) 18-103 every 6 (six) mcg/actuation inhaler hours as needed for wheezing. PARoxetine (PAXIL) 20 Take 20 mg by 0 Active MG tablet mouth every morning. albuterol (PROVENTIL) Take 2.5 mg by 0 Active 2.5 mg /3 mL (0.083 %) nebulization nebulizer solution every 6 (six) hours as needed for wheezing. amitriptyline (ELAVIL) Take 150 mg by 0 Active 150 MG tablet mouth nightly. fluticasone-salmeterol Inhale 1 puff 2 1 each 5 10/23/20 Active (ADVAIR DISKUS) 250-50 (two) times a 19 019 mcg/dose DISKUS day for 30 days. diazePAM (VALIUM) 2 MG Take 1 tablet (2 30 tablet 0 10/23/19 Active tablet mg total) by 19 019 mouth daily for 30 days. fluticasone-umeclidin- Inhale 62.5 mcg 60 each 2 10/30/19 Active vilanter (TRELEGY daily. 19 ELLIPTA) 100-62.5-25 mcg blister with device levocetirizine (XYZAL) Take 1 tablet (5 30 tablet 3 11/11/19 Active 5 MG tablet mg total) by 19 019 mouth every evening for 30 days. fluticasone-salmeterol Inhale 1 puff 2 0 Discontinued (ADVAIR) 250-50 (two) times a 019 mcg/dose DISKUS day. montelukast Take 10 mg by 0 Discontinued (SINGULAIR) 10 mg mouth nightly. 018 tablet famotidine (PEPCID) 40 TAKE ONE TABLET 90 tablet 4 01/14/20 Discontinued MG tablet BY MOUTH ONCE 17 018 DAILY pantoprazole TAKE ONE TABLET 90 tablet 3 02/18/20 Discontinued (PROTONIX) 40 MG EC BY MOUTH ONCE 17 018 tablet DAILY famotidine (PEPCID) 40 Take 40 mg by 0 Discontinued MG tablet mouth daily. 018 levocetirizine (XYZAL) Take 1 tablet (5 30 tablet 3 10/29/19 Discontinued 5 MG tablet mg total) by 18 018 mouth every evening for 30 days. pantoprazole TAKE ONE TABLET 90 tablet 3 12/23/19 (PROTONIX) 40 MG EC BY MOUTH ONCE 18 018 tablet DAILY predniSONE (DELTASONE) 4 tabs daily X 3 32 tablet 0 01/28/20 10 mg tablet days, 3 tabs 18 018 daily X 3 days, 2 tabs daily X 3 days, 1 tab daily X 3 days, then 1/2 tab daily X 3 days. famotidine (PEPCID) 40 TAKE ONE TABLET 90 tablet 4 02/07/20 MG tablet BY MOUTH ONCE 18 018 DAILY levocetirizine (XYZAL) TAKE ONE TABLET 30 tablet 3 03/30/20 Discontinued 5 MG tablet BY MOUTH IN THE 018 EVENING FOR 30 DAYS famotidine (PEPCID) 40 Take 1 tablet 30 tablet 2 04/29/20 MG tablet (40 mg total) by 18 018 mouth daily for 30 days. levocetirizine (XYZAL) TAKE 1 TABLET BY 30 tablet 3 08/12/20 Discontinued 5 MG tablet MOUTH IN THE 019 EVENING diazePAM (VALIUM) 2 MG Take 1 tablet (2 90 tablet 0 08/19/20 Discontinued tablet mg total) by 18 018 mouth every 8 (eight) hours as needed for anxiety for up to 30 days. predniSONE (DELTASONE) 4 tabs daily X 3 32 tablet 0 08/19/20 10 mg tablet days, 3 tabs 18 018 daily X 3 days, 2 tabs daily X 3 days, 1 tab daily X 3 days, then 1/2 tab daily X 3 days. benzonatate (TESSALON) Take 1 capsule 30 capsule 0 09/03/20 Discontinued 100 MG capsule (100 mg total) 18 018 by mouth 3 (three) times a day as needed for cough for up to 30 days. montelukast Take 1 tablet 30 tablet 0 09/14/20 Discontinued (SINGULAIR) 10 mg (10 mg total) by 18 018 tablet mouth nightly for 30 days. amoxicillin-pot Take 1 tablet by 14 tablet 0 09/14/20 Discontinued clavulanate mouth 2 (two) 18 018 (AUGMENTIN) 875-125 mg times a day for per tablet 7 days. predniSONE (DELTASONE) 30mg Po X3 days 18 tablet 0 09/14/20 Discontinued 10 mg tablet then 20mg PoX3 18 018 days then 10 mg po X3 days montelukast Take 1 tablet 30 tablet 0 09/14/20 (SINGULAIR) 10 mg (10 mg total) by 18 019 tablet mouth nightly for 30 days. amoxicillin-pot Take 1 tablet by 14 tablet 0 09/14/20 clavulanate mouth 2 (two) 18 018 (AUGMENTIN) 875-125 mg times a day for per tablet 7 days. predniSONE (DELTASONE) 30mg Po X3 days 18 tablet 0 09/14/20 10 mg tablet then 20mg PoX3 18 018 days then 10 mg po X3 days benzonatate (TESSALON) Take 1 capsule 90 capsule 1 09/24/20 Discontinued 100 MG capsule (100 mg total) 18 019 by mouth 3 (three) times a day as needed for cough for up to 30 days. lactulose 20 gram/30 Take 30 mL (20 g 600 mL 0 09/24/20 mL solution total) by mouth 18 018 2 (two) times a day for 10 days. nystatin (MYCOSTATIN) Take 5 mL 150 mL 0 09/24/20 100,000 unit/mL (500,000 Units 18 018 suspension total) by mouth 3 (three) times a day for 10 days. Swish in mouth and swallow methylPREDNISolone follow package 21 tablet 0 09/24/20 (MEDROL, SUPRIYA,) 4 mg directions 18 019 tablet amoxicillin-pot Take 1 tablet by 14 tablet 0 09/24/20 clavulanate mouth 2 (two) 18 018 (AUGMENTIN) 875-125 mg times a day for per tablet 7 days. hydrocodone-homatropin Take 5 mL by 200 mL 0 09/24/20 Discontinued e (HYCODAN) 5-1.5 mg/5 mouth nightly 18 018 mL syrup for 10 days. Max Daily Amount: 5 mL hydrocodone-homatropin Take 5 mL by 200 mL 0 09/25/20 Discontinued e (HYCODAN) 5-1.5 mg/5 mouth nightly 18 018 mL syrup for 10 days. Max Daily Amount: 5 mL hydrocodone-homatropin Take 5 mL by 200 mL 0 09/25/20 Discontinued e (HYCODAN) 5-1.5 mg/5 mouth nightly 18 018 mL syrup for 10 days. Max Daily Amount: 5 mL codeine Take 5 mL by 150 mL 0 09/25/20 augustin-chlorphenir augustin mouth nightly as 18 018 14.7-2.8 mg/5 mL needed (for suspension,extended cough) for up to rel 12 hr 10 days. Hospital, Clinic, or Other Ordered Dose Route Frequency Start Date End Date Status Facility Administered Medication methylPREDNISolone sodium 125 mg IM once 09/24/2018 09/24/2018 Ended succinate (Solu-MEDROL) injection 125 mgIndications: COPD exacerbation (HCC) Active Problems Problem Noted Date COPD exacerbation 09/11/2018 Allergic sinusitis 10/29/2017 COPD, severe- stable 07/31/2017 COPD with exacerbation 02/26/2017 Confusion 02/26/2017 Pneumonia due to infectious organism 11/15/2016 Gastroesophageal reflux disease without esophagitis- stable 09/18/2016 Anxiety 09/18/2016 Chronic obstructive pulmonary disease 05/30/2016 COPD (chronic obstructive pulmonary disease) Lung nodule Encounters Date Type Specialty Care Team Description 11/11/2018 Refill Pulmonology Henrietta France MA 10/30/2018 Telephone Pulmonology Kj Vergara MD 10/23/2018 Office Visit Pulmonology Kj Vergara Chronic obstructive pulmonary disease, unspecified COPD type (HCC) (Primary Dx); MD Freddie Allergic sinusitis; Anxiety; Gastroesophageal reflux disease without esophagitis 09/25/2018 Refill Pulmonology Henrietta France MA 09/25/2018 Telephone Pulmonology Henrietta France MA 09/24/2018 Office Visit Pulmonology Kj Vergara COPD exacerbation (HCC) (Primary Dx); MD Freddie Sinusitis, unspecified chronicity, unspecified location; Oral thrush; Drug-induced constipation 09/11/2018 - [facility], 09/14/2018 Encounter Medicine MD Dora Hester Naveen, MD 09/03/2018 Telephone Pulmonology Melva Bliss MA 08/19/2018 Office Visit Pulmonology Kj Vergara COPD exacerbation (HCC) (Primary Dx); MD Freddie Gastroesophageal reflux disease without esophagitis; Anxiety; Need for prophylactic vaccination and inoculation against cholera alone 08/19/2018 Orders Only Pulmonology Christelle Qureshi MD 08/12/2018 Refill Pulmonology Kj Vergara MD 05/05/2018 Orders Only Pulmonology Ama Yao MA pulmonary disease, unspecified COPD type 04/29/2018 Clinical Support Pulmonology Kj Vergara MD pulmonary diseaseAnirudh Karl unspecified COPD type 04/29/2018 Office Visit Pulmonology Kj Vergara Chronic obstructive pulmonary disease, unspecified COPD type (Primary Dx); MD Freddie Allergic sinusitis; Gastroesophageal reflux disease without esophagitis 03/30/2018 Refill PulmonKj Huang MD 02/06/2018 Refill Pulmonology Kj Vergara MD 01/27/2018 Office Visit Pulmonology Kj Vergara COPD, severe- stable ( Primary Dx); MD Freddie Gastroesophageal reflux disease without esophagitis- stable; Allergic sinusitis 12/22/2017 Refill Pulmonology Kj Vergara MD after 11/15/2017 Immunizations Name Dates Previously Given Next Due [...] Vital Sign Reading Time Taken Blood Pressure 115/57 10/23/2018 12:53 PM [employer] Pulse 104 10/23/2018 12:53 PM [employer] Temperature 36.9 C (98.4 F) 10/23/2018 12:53 PM [employer] Respiratory Rate 14 10/23/2018 12:53 PM [employer] Oxygen Saturation 95% 10/23/2018 12:53 PM [employer] Inhaled Oxygen Concentration - - Weight 73.5 kg (162 lb) 10/23/2018 12:53 PM [employer] Height 167.6 cm (5' 6") 10/23/2018 12:53 PM [employer] Body Mass Index 26.15 10/23/2018 12:53 PM [employer] Plan of Treatment Date Type Specialty Care Team Description 11/30/2018 Office Visit Pulmonology Kj Vergara MD [address] [facility] [address] [place] [phone] Health Maintenance Due Date Last Done Comments BREAST CANCER SCREENING 1998 COLON CANCER SCREENING 1998 SHINGLES VACCINES (1 of 2) 1998 PNEUMOCOCCAL POLYSACCHARIDE VACCINE Completed 04/28/2013 AGE 65 AND OVER PNEUMOCOCCAL-13 Completed 11/14/2015 INFLUENZA VACCINE Completed 08/19/2018, 07/31/2017, 05/30/2016, Additional history exists Procedures Procedure Name Priority Date/Time Associated Diagnosis Comments HC COMPLETE BLD Routine 09/14/2018 5:40 AM Results for this COUNT W/AUTO DIFF [employer] procedure are in the results section. ESTIMATED GFR Routine 09/13/2018 5:00 AM Results for this [employer] procedure are in the results section. BASIC METABOLIC Routine 09/13/2018 5:00 AM Results for this PANEL [employer] procedure are in the results section. HC COMPLETE BLD Routine 09/13/2018 5:00 AM Results for this COUNT W/AUTO DIFF [employer] procedure are in the results section. GRAM STAIN Routine 09/12/2018 1:35 PM Results for this [employer] procedure are in the results section. SPUTUM CULTURE Routine 09/12/2018 1:35 PM Results for this [employer] procedure are in the results section. XR CHEST 1 VW Routine 09/12/2018 9:07 AM Results for this PORTABLE [employer] procedure are in the results section. ESTIMATED GFR Routine 09/12/2018 4:55 AM Results for this [employer] procedure are in the results section. MAGNESIUM LEVEL Routine 09/12/2018 4:55 AM Results for this [employer] procedure are in the results section. BASIC METABOLIC Routine 09/12/2018 4:55 AM Results for this PANEL [employer] procedure are in the results section. HC COMPLETE BLD Routine 09/12/2018 4:55 AM Results for this COUNT W/AUTO DIFF [employer] procedure are in the results section. ESTIMATED GFR Routine 09/11/2018 2:35 PM Results for this [employer] procedure are in the results section. TROPONIN STAT 09/11/2018 2:35 PM Results for this [employer] procedure are in the results section. BASIC METABOLIC Routine 09/11/2018 2:35 PM Results for this PANEL [employer] procedure are in the results section. LACTIC ACID LEVEL Routine 09/11/2018 2:35 PM Results for this [employer] procedure are in the results section. HC COMPLETE BLD Routine 09/11/2018 2:35 PM Results for this COUNT W/AUTO DIFF [employer] procedure are in the results section. [id number] Routine 08/13/2018 ECG 12-LEAD Routine 08/10/2018 MRI STROKE BRAIN WO Routine 08/10/[address] STROKE BRAIN WO Routine 08/10/2018 CONTRAST XR CHEST 1 VW Routine 08/10/2018 CT STROKE BRAIN WO Routine 08/10/2018 CONTRAST XR CHEST 1 VW Routine 08/10/2018 MRI STROKE BRAIN WO Routine 08/10/2018 CONTRAST after 11/15/2017 Results CBC with platelet and differential (09/14/2018 5:40 AM [employer])Only the most recent of4 resultswithin the time period is included. WBC 11.4 (H) 4.5 - 11.0 k/uL [facility] RBC 3.85 (L) 4.20 - 5.50 m/uL [facility] HGB 12.1 12.0 - 16.0 g/dL [facility] HCT 37.7 37.0 - 47.0 % [facility] MCV 97.9 82.0 - 100.0 fL [facility] MCH 31.4 27.0 - 34.0 pg [facility] MCHC 32.1 31.0 - 37.0 g/dL [facility] RDW - SD 45.2 37.0 - 55.0 fL [facility] MPV 9.5 6.9 - 11.0 fL [facility] Platelet count 242 150 - 400 K/uL [facility] Nucleated RBC 0.00 /100 WBC [facility] Neutrophils 87.3 (H) 39.0 - 69.0 % [facility] Lymphocytes 8.0 (L) 25.0 - 45.0 % [facility] Monocytes 4.0 0.0 - 10.0 % [facility] Eosinophils 0.0 0.0 - 5.0 % [facility] Basophils 0.1 0.0 - 1.0 % [facility] Immature granulocytes 0.6 0.0 - 1.0 % [facility] Specimen Blood Performing Organization Address City/State/Zipcode Phone Number [facility] DEPARTMENT OF PATHOLOGY [address] [place] [address] AND GENOMIC MEDICINE [facility] [address] [place] [address] HOSPITAL Estimated GFR (09/13/2018 5:00 AM [employer])Only the most recent of3 resultswithin the time period is included. Estimated GFR 72 mL/min/1.73 m2 [facility] Comment: [facility] CatergoryUnitsInterpretation G1 >=90 Normal or high G2 60-89Mildly decreased [id number] to moderately decreased [id number] to severely decreased G4 15-29Severely decreased G5 <15Kidney failure The eGFR was calculated using the Chronic Kidney Disease Epidemiology Collaboration (CKD-EPI) equation. Interpretation is based on recommendations of the National Kidney Foundation-Kidney Disease Outcomes Quality Initiative (NKF-KDOQI) published in 2014. Specimen Plasma specimen Performing Organization Address City/[facility] Phone Number [facility] DEPARTMENT OF PATHOLOGY [id number] [place] [address] Basic metabolic panel (09/13/2018 5:00 AM [employer])Only the most recent of3 resultswithin the time period is included. Sodium 142 135 - 148 mEq/L [facility] Potassium 4.3 3.5 - 5.0 mEq/L [facility] Chloride 104 98 - 112 mEq/L [facility] CO2 30 24 - 31 mEq/L [facility] Anion gap 8@ANIO 7 - 15 mEq/L [facility] BUN 18 8 - 23 mg/dL [facility] Creatinine 0.82 0.50 - 0.90 mg/dL [facility] Glucose 146 (H) 65 - 99 mg/dL [facility] Calcium 8.8 8.8 - 10.2 mg/dL [facility] Specimen Plasma specimen Performing Organization Address City/[facility] Centercode Phone Number [facility] DEPARTMENT OF PATHOLOGY [id number] [place] [address] [place] [address] HOSPITAL Sputum culture (09/12/2018 1:35 PM [employer]) Sputum culture isolate Normal oral paul isolated. [facility] Comment: HOSPITAL Specimen Information Specimen Source: Sputum Specimen Site: Expectorated Specimen Sputum - Expectorated Performing Organization Address City/State/Zipcode Phone Number [facility] DEPARTMENT OF PATHOLOGY AND [address] [place] [address] [address] Gram stain (09/12/2018 1:35 PM [employer]) Gram stain isolate Moderate WBC's [facility] Rare Gram positive rods Comment: Specimen Information Specimen Source: Sputum Specimen Site: Expectorated Specimen Sputum - Expectorated Performing Organization Address [facility]/Zipcode Phone Number [facility] DEPARTMENT OF PATHOLOGY AND [address] [place] [address] [facility] [address] [place] [address] XR Chest 1 Vw Portable (09/12/2018 9:07 AM [employer]) Narrative Performed At EXAMINATION:XR CHEST 1 VW PORTABLE [facility] CLINICAL HISTORY:Shortness of breath XR CHEST 1 VW PORTABLEimages are submitted COMPARISON:February 2017 FINDINGS: The cardiac silhouette is normal in size. The lung zones are hyperinflated. Bullous changes are seen within the lung apices bilaterally. There is no focal area of consolidation. Is no pleural effusion or pneumothorax. IMPRESSION: 1. The lung zones are hyperinflated. 2. There is no acute consolidation or failure. [facility]-[id number] Procedure Note Hm Interface, Radiology Results Incoming - 09/12/2018 9:27 AM [employer] EXAMINATION: XR CHEST 1 VW PORTABLE CLINICAL HISTORY: Shortness of breath XR CHEST 1 VW PORTABLE images are submitted COMPARISON: February 2017 FINDINGS: The cardiac silhouette is normal in size. The lung zones are hyperinflated. Bullous changes are seen within the lung apices bilaterally. There is no focal area of consolidation. Is no pleural effusion or pneumothorax. IMPRESSION: 1. The lung zones are hyperinflated. 2. There is no acute consolidation or failure. [id number] Performing Organization Address [facility]/Zipcode Phone Number [facility] [address] [place] [address] Magnesium level (09/12/2018 4:55 AM [employer]) Magnesium 2.4 1.6 - 2.4 mg/dL [facility] Specimen Plasma specimen Performing Organization Address City/[facility]/Zipcode Phone Number [facility] DEPARTMENT OF PATHOLOGY [address] [place] [address] AND [facility] [address] [place] [address] HOSPITAL Troponin (09/11/2018 2:35 PM [employer]) Troponin <0.30 0.00 - 0.30 ng/mL [facility] Comment: HOSPITAL 0.11 - 1.49 ng/mlMay indicate increased risk of acute coronary syndrome. >=1.5 ng/mlConsistent with acute myocardial infarction. The diagnostic value of a single normal or non-diagnostic result is questionable.Serial samples at 2-6 hour intervals are required to rule out acute myocardial injury. Specimen Plasma specimen Performing Organization Address City/State/Zipcode Phone Number [facility] DEPARTMENT OF PATHOLOGY [address] [place] [address] AND [facility] [id number] [place] [address] Lactic acid level (09/11/2018 2:35 PM [employer]) Lactic acid 2.0 0.5 - 2.2 mmol/L [facility] Specimen Plasma specimen Performing Organization Address [facility]/Zipcode Phone Number [facility] DEPARTMENT OF PATHOLOGY [address] [place] [address] AND [facility] [id number] [place] [address] Miscellaneous Lab Result (08/13/2018) Specimen Blood Narrative [...] 12 lead (08/10/2018) Narrative Performed At after 11/15/2017 Insurance Payer Benefit Plan / Group Subscriber ID Type Phone Address [employer] MEDICARE [employer] MEDICARE PPO/PFFS/[facility] xxxxxxxxx PPO Advance Directives Patient has advance care planning documents, and code status on file. For more information, please contact:[place] [address] Code Status Date Activated Date Inactivated Comments Full Code 02/26/2017 9:20 PM 03/03/2017 7:36 PM Code Status decision reached by: Patient Full Code 02/26/2017 9:07 PM 02/26/2017 9:20 PM Code Status decision reached by: Patient
[2018-11-16] MEDS ORDERED: PHENYLEPHRINE 10% OPTH 5ML ONE (07:46)
[2018-11-16] MEDS ORDERED: NA CHLORIDE 0.9% 500 ML ONE (07:46)
[2018-11-16] MEDS ORDERED: CYCLOPENTOLATE 1% OPTH 2 ML ONE (07:47)
[2018-11-16] MEDS ORDERED: TETRACAINE HCL 0.5% 2ML OPTH ONE (07:47)
[2018-11-16] MEDS ORDERED: BUPIVACAINE 0.25% PF 10 ML VIAL ONE (07:47)
[2018-11-16] MEDS ORDERED: LIDOCAINE 2% MPF 5 ML VIAL ONE (07:47)
[2018-11-16] MEDS ORDERED: PHENYLEPHRINE 10% OPTH 5ML OPTH ONE ×2 (07:52→08:02)
[2018-11-16] MEDS ORDERED: CYCLOPENTOLATE 1% OPTH 2 ML OPTH ONE ×2 (07:52→08:02)
[2018-11-16] MEDS ORDERED: LIDOCAINE 1% MPF 5 ML VIAL ONE (07:54)
[2018-11-16] MEDS ORDERED: DUOVISC 1 KIT OPTH ONE (08:13)
[2018-11-16] MEDS ORDERED: BALANCED SALT IRRIG PLAIN 500 ML BTL IRR ONE (08:13)
[2018-11-16] MEDS ORDERED: EPINEPHRINE/PF 1 MG/ML AMP ONE ×2 (08:13→09:25)
[2018-11-16] MEDS ORDERED: NS 0.9% VIAL 10 ML ONE (08:13)
[2018-11-16] MEDS ORDERED: LIDOCAINE HCL/PF 3.5% OPTH GEL ONE (08:14)
[2018-11-16 08:20] VITALS: O2SAT 89
[2018-11-16] MEDS ORDERED: LIDOCAINE 1% MPF 2 ML AMPULE ONE (08:31)
[2018-11-16] MEDS ORDERED: FENTANYL CITR 100 MCG/2 ML ONE (08:53)
[2018-11-16] MEDS ORDERED: MIDAZOLAM HCL 2 MG/2 ML INJ ONE (08:54)
[2018-11-16] MEDS: MOXIFLOXACIN HCL 10 DROPS/ML **OR USE OPTH ONE ×2 (09:26→09:37)
--- NOTE | 2018-11-16 09:44 | P.BOP ---
Preoperative diagnosis: Nuclear sclerotic cataract OS Postoperative diagnosis: Same Primary procedure: Phacoemulsification with IOL OS Estimated blood loss: None Anesthesia: Local (Topical with anesthesia for cataract surgery) Complications: None Implants: ZCB00 +22.0 Transferred to: Other (Day surgery) Condition: Good
[2018-11-16 09:58] VITALS: BP 118/56; TEMP 98.4
--- NOTE | 2018-11-16 20:44 | OP ---
Surgeon: Dawn Kwan MD Anesthesiologist: Hailee Barrett CRNA, and Raz Boland M.D. Preoperative Diagnosis: Nuclear sclerotic cataract, OS (left eye). Operation Performed: Phacoemulsification with intraocular lens implant, left eye. Anesthesia: Per cataract surgery. Complications: None. Description Of Procedure: In the operating room the patient was prepped and draped in the usual ster ile fashion for ophthalmic surgery. A lid speculum was placed in the left eye. Two paracentesis sit es were made superiorly and inferiorly in the limbal cornea. Viscoat was placed in the anterior barbara amador and a crescent blade was used to make a corneal groove and tunnel, and a keratome was used to ent er the anterior chamber. Provisc was placed in the anterior chamber and a 360 degree capsulotomy was performed with a cystitome. The lens was hydrodissected with BSS and rotated freely. The lens was removed with a stop and chop technique. A 5.99 phaco CDE was used to remove the lens. Residual kevin ex was removed with the irrigation and aspiration. Provisc was placed in the capsular bag. A ZCB00 + 22.0 lens was placed in the capsular bag without complications. Irrigation and aspiration was used to remove residual viscoelastic. The paracentesis sites were hydrated with BSS. The wound and para centesis sites were inspected and found to be watertight. Vigamox 0.07 cc was placed intracamerally at the end of the procedure. The eye was irrigated with balanced salt solution. The eye was patched with a soft cotton patch and Tyler metal shield. The patient was returned to day surgery in good condition. Comments: Akten was placed in the eye in the Day Surgery and irrigated out of the eye with BSS in th e OR. Preservative-free 1% lidocaine was placed in the anterior chamber. This was followed by 1:500 0 epinephrine. Both were placed prior to Viscoat. Discharge Instructions: Ms. Waldrop was discharged to home in good condition and is to follow up with Dr. Kwan in the morning. DAQUAN/BRIAN Voice ID: [id number] Report ID: [id number]
== END 2018-11-16 10:20 | disposition home or self-care (01) ==
LOC: OR 07:15
PROVIDERS: ATTEND Ophthalmology Retina Specialist
PROC: 08RK3JZ Replacement of Left Lens with Synthetic Substitute, Percutaneous Approach (ICD-10-PCS; principal; 2018-11-16 09:10)
DX: H25.12 Age-related nuclear cataract, left eye (principal); J44.9 Chronic obstructive pulmonary disease, unspecified; Z79.899 Other long term (current) drug therapy; Z87.891 Personal history of nicotine dependence
CPT/HCPCS: 66984; J0171 ×2; J2001; J2250; J3010; V2630